=== PATIENT | male | born 1965 | race Caucasian/White ===

== ENCOUNTER → 2023-03-12 13:28 | Outpatient (REF) | payer BC, SELFPAY ==
[2023-03-12 14:40] LABS: % Basophils 0.1 % (0-2); % Immature Granulocytes 0.5 % (0-0.5); % Lymphocytes 11.3 % (20.5-51.1); % Monocytes 5.4 % (1.7-9.3); % Neutrophils 82.7 % (42.2-75.2); Absolute Immature Granulocytes 0.1 10^3/uL (0-0.05); Absolute Lymphocytes 1.4 10^3/uL (1.2-3.4); Absolute Monocytes 0.7 10^3/uL (0.1-0.6); Hematocrit 37.5 % (39.0-52.0); Mean Corp Hgb Conc. 34.7 g/dL (33.0-37.0); Mean Corpuscular Hgb 30.3 pg (27.0-31.0); Mean Corpuscular Volume 87.4 fL (80.0-94.0); Mean Platelet Volume 10.6 fL (7.4-10.4); Nucleated Red Blood Cells % 0 % (-); Platelet Count 363 10^3/uL (130-400); Red Blood Cell Count 4.29 10^6/uL (4.70-6.10); Red Cell Dist. Width 12.1 % (11.5-14.5); White Blood Cell Count 12.1 10^3/uL (4.8-10.8)
[2023-03-12 15:26] LABS: ALT (SGPT) 46 U/L (0-50); AST (SGOT) 33 U/L (17-59); Albumin 4.9 g/dl (3.5-5.0); Alkaline Phosphatase 116 U/L (38-126); Blood Urea Nitrogen 19 mg/dl (9-20); Calcium 9.9 mg/dl (8.4-10.2); Carbon Dioxide 23 mmol/L (22-30); Chloride 103 mmol/L (98-107); Glucose 138 mg/dl (70-99); LDH 148 U/L (120-246); Potassium 4.2 mmol/L (3.5-5.1); Sodium 137 mmol/L (135-145); Total Bilirubin 0.5 mg/dl (0.2-1.3); Total Protein 7.7 g/dl (6.3-8.2); eGFR > 60.00
== END ==
LOC: RAD 13:28
PROVIDERS: ATTENDING PHYSICIAN Dermatology; FAMILY PHYSICIAN Family Medicine; REFERRING PHYSICIAN Physician Assistant
DX: C43.52 Malignant melanoma of skin of breast (principal)
CPT/HCPCS: 36415; 71046; 80053; 83615; 85025

== ENCOUNTER → 2023-04-06 11:48 | Outpatient (REF) | payer BC, SELFPAY ==
[2023-04-06 12:35] LABS: ALT (SGPT) 21 U/L (0-50); AST (SGOT) 30 U/L (17-59); HDL Cholesterol 51 mg/dl; LDL Cholesterol, Calculated 88 mg/dl; Total Cholesterol 156 mg/dl (50-199); Triglyceride 87 mg/dl (10-149); Very Low Density Lipoprotein 17 mg/dl (0-30)
== END ==
LOC: REG 11:48
PROVIDERS: ATTENDING PHYSICIAN Internal Medicine; FAMILY PHYSICIAN Family Medicine
DX: E78.00 Pure hypercholesterolemia, unspecified (principal)
CPT/HCPCS: 36415; 80061; 84450; 84460

== ENCOUNTER 2023-04-23 02:04 | Emergency (ER) | payer BC, SELFPAY ==
[2023-04-23] VITALS (8 sets, daily range): BP systolic 109–140; BP diastolic 73–98; BMI 29.7
[2023-04-23 03:21] LABS: % Basophils 0.5 % (0-2); % Eosinophils 1.2 % (0-6); % Immature Granulocytes 0.5 % (0-0.5); % Lymphocytes 23.1 % (20.5-51.1); % Monocytes 7.5 % (1.7-9.3); % Neutrophils 67.2 % (42.2-75.2); Absolute Basophils 0.1 10^3/uL (0-0.2); Absolute Eosinophils 0.2 10^3/uL (0-0.7); Absolute Immature Granulocytes 0.1 10^3/uL (0-0.05); Absolute Neutrophils 8.7 10^3/uL (1.4-6.5); Hematocrit 36.2 % (39.0-52.0); Mean Corp Hgb Conc. 35.9 g/dL (33.0-37.0); Mean Corpuscular Volume 86.2 fL (80.0-94.0); Mean Platelet Volume 10.7 fL (7.4-10.4); Nucleated Red Blood Cells % 0 % (-); Platelet Count 319 10^3/uL (130-400); Red Cell Dist. Width 11.9 % (11.5-14.5)
[2023-04-23 03:22] LABS: Urine Albumin Negative (Neg - Trace); Urine Bilirubin Negative (Negative); Urine Character Clear (Clear); Urine Color Yellow; Urine Glucose Negative (Negative); Urine Ketone Negative (Negative); Urine Leukocyte Negative (Negative); Urine Nitrite Negative (Negative); Urine Occult Blood Negative (Negative); Urine Urobilinogen Negative (Neg - 1+)
[2023-04-23 03:36] LABS: ALT (SGPT) 31 U/L (0-50); AST (SGOT) 37 U/L (17-59); Albumin 4.4 g/dl (3.5-5.0); Alkaline Phosphatase 114 U/L (38-126); Blood Urea Nitrogen 24 mg/dl (9-20); Calcium 9.8 mg/dl (8.4-10.2); Carbon Dioxide 27 mmol/L (22-30); Chloride 98 mmol/L (98-107); Glucose 237 mg/dl (70-99); Potassium 4.4 mmol/L (3.5-5.1); Sodium 138 mmol/L (135-145); Total Bilirubin 0.4 mg/dl (0.2-1.3); Total Protein 7.1 g/dl (6.3-8.2); eGFR > 60.00
[2023-04-23] MEDS: VALIUM INJECTION 2 MG IV (05:49)
[2023-04-23] MEDS: TORADOL 30 MG IV (05:49)
[2023-04-23] MEDS: DECADRON 10 MG IV (05:49)
--- NOTE | 2023-04-23 06:41 | ED.GENMED ---
History of Present Illness
General
Chief Complaint: Breathing Problem
Source: patient
Exam Limitations: none
Time Seen by Provider: 04/23/23 03:25
Nursing documentation reviewed up to this point in time: agreed with
Travel History
Have you had any contact with someone who has COVID-19?: No
Do you have any symptoms of coronavirus? Fever > 100 degrees, chills, cough, shortness of breath, sore throat, loss of taste or smell, muscle aches, or headache?: No
History of Present Illness
History of Present Illness:
Patient with history of multiple spinal fusion, presents to ED secondary to sudden onset of left lower back pain radiating to his groin and thigh. Denies fever or chills. Denies nausea or vomiting. Denies urinary or bowel incontinence. Denies
low sensation or weakness. Denies difficulty with ambulation. Denies trauma. Denies recent illness. Patient has an appointment with his surgeon at [place] in 2 weeks.
Past History
Past History
ED Past Medical History: GERD and IDDM
ED Past Surgical History: Orthopedic
Social History
Tobacco: Non-smoker
Alcohol: Occasional
Drug: None
Personal:
Living: with family
Employment: Employed
Family History
Family History: Other
Review of Systems
Review of Systems
Allergies reviewed?: Yes
All Other Systems: ROS reviewed and negative except as documented in HPI and ROS
Constitutional: Reports no symptoms; Denies fever
Respiratory: Reports no symptoms
ABD/GI: Reports no symptoms
: Reports no symptoms; Denies incontinence or difficulty voiding
Musculoskeletal: Reports back pain
Skin: Reports no symptoms
Neurological: Reports no symptoms; Denies weakness or numbness
Phy Exam
Physical Exam
Physical Exam:
Physical Exam
General: mild painful distress, not acutely ill. afebrile
Head: nc/at. eomi
Neck: supple. no meningeal signs.
Abdomen: normal bowel sounds. not tender.
Back: no mid line tenderness. mild left lower back/buttock tenderness to palpation. pain worse with left leg elevation/flexion/rotation.
Neuro: alert and oriented. no focal neurological deficits
Skin: no rash
Psychiatric: well kept. interactive and cooperative
Extremities: no edema. no calf tenderness.
Scores
Heart Failure Risk
Heart Failure Risk Score: Not Applicable
Course
Orders/Labs/Results
Orders:
Orders
04/23/23 02:41
CMP [Comprehensive Metabolic Panel] Urgent
Complete Blood Count/With Diff Urgent
Urinalysis Urgent
Date Specimen was Collected: 04/23/23
Time Specimen was Collected: 02:21
04/23/23 05:34
Dexamethasone Sod Phosphate [Decadron] 10 mg IV NOW STA
Ketorolac [Toradol] 30 mg IV NOW STA
diazePAM [Valium Injection] 2 mg IV NOW STA
04/23/23 06:41
HYDROmorphone [Dilaudid] 1 mg .ROUTE .STK-MED ONE
HYDROmorphone [Dilaudid] 1 mg IV NOW STA
04/23/23 07:50
HYDROmorphone [Dilaudid] 0.5 mg IV NOW STA
Abnormal Lab Results
04/23/23
02:41
WBC 13.0 H 10^3/uL
(4.8-10.8)
RBC 4.20 L 10^6/uL
(4.70-6.10)
Hct 36.2 L %
(39.0-52.0)
MPV 10.7 H fL
(7.4-10.4)
Abs Immat Gran (auto) 0.1 H 10^3/uL
(0-0.05)
Absolute Neuts (auto) 8.7 H 10^3/uL
(1.4-6.5)
Absolute Monos (auto) 1.0 H 10^3/uL
(0.1-0.6)
BUN 24 H mg/dl
(9-20)
Glucose 237 H mg/dl
(70-99)
04/23/23 02:41
04/23/23 02:41
Vital Signs
Initial and Last Documented VS:
Initial Vital Signs
Temp Pulse Resp BP Pulse Ox
97.5 F 94 24 140/98 98
04/23/23 02:11 04/23/23 02:11 04/23/23 02:11 04/23/23 02:11 04/23/23 02:11
Last Documented Vital Signs
Temp Pulse Resp BP Pulse Ox
97.5 F 84 9 123/91 94
04/23/23 02:11 04/23/23 08:00 04/23/23 07:45 04/23/23 08:00 04/23/23 08:30
MDM/Problems Addressed
MDM/Problems Addressed:
History and exam concerning for potential exacerbation of lower back pain/sciatica. Will treat symptomatically and potentially refer patient to his surgeon for reevaluation, including potential MRI as an outpatient. Exam findings inconsistent with
cauda equina syndrome.
*Critical Care Note
Total Time (30-74mins, 75-104mins- exclusive of procedures): Not Applicable
ED Attending Note
-
Portions of this chart may have been created with voice recognition software.� Occasional wrong word or��sound alike� substitutions may have occurred due to the inherent limitations of voice recognition software.
Discharge Plan
Departure
Patient Disposition: Home (Routine Discharge)
Date of Disposition: 04/23/23
Time of Disposition: 07:50
Patient with high blood pressure during this ER visit?: Yes
Discharge Problem:
Back pain
Instructions: Back Pain
Prescriptions:
New
methylprednisolone [Medrol (Lloyd)] 4 mg tablets,dose pack
4 mg PO DAILY Qty: 21 0RF
Rx Instructions:
As directed
diazepam [Valium] 2 mg tablet
2 mg PO TID PRN (Reason: muscle spasm) Qty: 10 0RF
No Action
metformin 500 MG tablet
1,000 mg PO BID
rabeprazole [AcipHex] 20 MG tablet,delayed release (DR/EC)
20 mg PO DAILY
cetirizine [Zyrtec] 10 MG tablet
10 mg PO DAILY
colesevelam [WelChol] 625 MG tablet
625 mg PO BID
azelastine 1 SPRAY aerosol,spray
2 spray intranasal DAILY
Patient Comments:
each nostril
cholecalciferol (vitamin D3) 1,000 UNITS tablet
3,000 units PO DAILY
diazepam [Valium] 5 mg tablet
5 mg PO BID PRN (Reason: muscle spasm) Qty: 8 0RF
dicyclomine 20 mg tablet
20 mg PO TID PRN (Reason: abdominal pain) Qty: 10 0RF
Referrals:
Jorge Alberto Patel DO [Family Provider] -
Activity Restrictions/Additional Instructions:
As discussed, please follow-up with your surgeon for further evaluation and treatment. Your prescriptions have been sent electronically to [facility] pharmacy in [place].
Interventions
Interventions:
*Risk Screen - Suicide Last Done: 04/23/23 02:11
*General Assessment Last Done: 04/23/23 03:49
*Neglect/Abuse Screening Last Done: 04/23/23 02:11
ED- Fall Risk Assessment Last Done: 04/23/23 08:30
*ED COVID-19 Vaccine History Last Done: 04/23/23 03:49
*Nursing Disposition Last Done: 04/23/23 08:30
NN-Dndfsp-Rvfdirzumf Assessment Last Done: 04/23/23 03:49
ED- Cardiac Assessment Last Done: 04/23/23 03:49
ED-Male Genitourinary Assessment Last Done: 04/23/23 03:49
ED- Pulmonary Assessment Last Done: 04/23/23 03:49
Discharge Date and Time
Discharge Date/Time: 04/23/23 08:30
[2023-04-23] MEDS: DILAUDID 1 MG IV (06:43)
[2023-04-23] MEDS: DILAUDID 0.5 MG IV (08:00)
== END 2023-04-23 08:30 | disposition home or self-care (01) ==
LOC: EMR 02:04
PROVIDERS: EMERGENCY PHYSICIAN Emergency Medicine; FAMILY PHYSICIAN Family Medicine
DX: M54.50 Low back pain, unspecified (principal); R03.0 Elevated blood-pressure reading, without diagnosis of hypertension
CPT/HCPCS: 99284; 96374; 96375 ×3; 96376; 36415; 80053; 81003; 82607; 82728; 82746; 83540; 83550; 85025; 85027

== ENCOUNTER → 2023-05-04 10:36 | Outpatient (REF) | payer BC, SELFPAY ==
[2023-05-04 11:06] LABS: % Basophils 0.6 % (0-2); % Eosinophils 2.1 % (0-6); % Immature Granulocytes 0.9 % (0-0.5); % Lymphocytes 34.5 % (20.5-51.1); % Monocytes 8.5 % (1.7-9.3); % Neutrophils 53.4 % (42.2-75.2); Absolute Eosinophils 0.1 10^3/uL (0-0.7); Absolute Immature Granulocytes 0.1 10^3/uL (0-0.05); Absolute Lymphocytes 2.3 10^3/uL (1.2-3.4); Absolute Monocytes 0.6 10^3/uL (0.1-0.6); Absolute Neutrophils 3.5 10^3/uL (1.4-6.5); Hematocrit 37.9 % (39.0-52.0); Hemoglobin 12.4 g/dL (13.0-18.0); Mean Corp Hgb Conc. 32.7 g/dL (33.0-37.0); Mean Corpuscular Volume 91.5 fL (80.0-94.0); Mean Platelet Volume 10.7 fL (7.4-10.4); Nucleated Red Blood Cells % 0 % (-); Platelet Count 284 10^3/uL (130-400); Red Blood Cell Count 4.14 10^6/uL (4.70-6.10); Red Cell Dist. Width 11.9 % (11.5-14.5); White Blood Cell Count 6.6 10^3/uL (4.8-10.8)
[2023-05-04 11:55] LABS: ALT (SGPT) 22 U/L (0-50); AST (SGOT) 23 U/L (17-59); Albumin 4.1 g/dl (3.5-5.0); Alkaline Phosphatase 112 U/L (38-126); Blood Urea Nitrogen 20 mg/dl (9-20); Calcium 9.4 mg/dl (8.4-10.2); Carbon Dioxide 30 mmol/L (22-30); Chloride 102 mmol/L (98-107); Glucose 200 mg/dl (70-99); HDL Cholesterol 45 mg/dl; LDL Cholesterol, Calculated 53 mg/dl; Potassium 4.5 mmol/L (3.5-5.1); Sodium 139 mmol/L (135-145); Total Bilirubin 0.3 mg/dl (0.2-1.3); Total Cholesterol 137 mg/dl (50-199); Total Protein 6.6 g/dl (6.3-8.2); Triglyceride 196 mg/dl (10-149); Very Low Density Lipoprotein 39 mg/dl (0-30); eGFR > 60.00
[2023-05-04 12:32] LABS: Glycohemoglobin (HgbA1c) 9.4 % (4.0-5.6)
== END ==
LOC: REG 10:36
PROVIDERS: ATTENDING PHYSICIAN Physician Assistant; FAMILY PHYSICIAN Family Medicine
DX: E11.65 Type 2 diabetes mellitus with hyperglycemia (principal)
CPT/HCPCS: 36415; 80053; 80061; 83036; 85025

== ENCOUNTER 2023-05-22 23:49 | Inpatient (IN) | payer BC, SELFPAY ==
[2023-05-22 15:22] VITALS: BP 112/91; BMI 28.2
[2023-05-22 15:40] LABS: % Basophils 0.7 % (0-2); % Eosinophils 2.6 % (0-6); % Immature Granulocytes 0.3 % (0-0.5); % Lymphocytes 36.3 % (20.5-51.1); % Neutrophils 52.1 % (42.2-75.2); Absolute Eosinophils 0.2 10^3/uL (0-0.7); Absolute Lymphocytes 2.2 10^3/uL (1.2-3.4); Absolute Monocytes 0.5 10^3/uL (0.1-0.6); Absolute Neutrophils 3.2 10^3/uL (1.4-6.5); Hematocrit 38.6 % (39.0-52.0); Hemoglobin 12.8 g/dL (13.0-18.0); Mean Corp Hgb Conc. 33.2 g/dL (33.0-37.0); Mean Corpuscular Volume 90.4 fL (80.0-94.0); Mean Platelet Volume 10.2 fL (7.4-10.4); Nucleated Red Blood Cells % 0 % (-); Platelet Count 336 10^3/uL (130-400); Red Blood Cell Count 4.27 10^6/uL (4.70-6.10); Red Cell Dist. Width 12.4 % (11.5-14.5); White Blood Cell Count 6.2 10^3/uL (4.8-10.8)
[2023-05-22 15:49] LABS: Urine Albumin Negative (Neg - Trace); Urine Bilirubin Negative (Negative); Urine Character Clear (Clear); Urine Color Yellow; Urine Glucose Negative (Negative); Urine Ketone Trace (Negative); Urine Leukocyte Negative (Negative); Urine Nitrite Negative (Negative); Urine Occult Blood Negative (Negative); Urine Specific Gravity 1.025 (<1.030); Urine Urobilinogen Negative (Neg - 1+)
[2023-05-22 15:56] LABS: ALT (SGPT) 189 U/L (0-50); AST (SGOT) 158 U/L (17-59); Albumin 4.7 g/dl (3.5-5.0); Alkaline Phosphatase 365 U/L (38-126); Blood Urea Nitrogen 20 mg/dl (9-20); Calcium 9.6 mg/dl (8.4-10.2); Carbon Dioxide 24 mmol/L (22-30); Chloride 105 mmol/L (98-107); Estimated Creatinine Clearance 95 ml/min; Glucose 136 mg/dl (70-99); Lipase 66 U/L (23-300); Sodium 138 mmol/L (135-145); Total Bilirubin 0.5 mg/dl (0.2-1.3); Total Protein 7.6 g/dl (6.3-8.2); eGFR > 60.00
--- NOTE | 2023-05-22 18:09 | ED.GENMED ---
History of Present Illness
General
Chief Complaint: Abdominal Pain
Time Seen by Provider: 05/22/23 18:08
Travel History
Have you had any contact with someone who has COVID-19?: No
Do you have any symptoms of coronavirus? Fever > 100 degrees, chills, cough, shortness of breath, sore throat, loss of taste or smell, muscle aches, or headache?: No
History of Present Illness
History of Present Illness:
HPI: Patient presents with abdominal pain onset 2 days ago. This is associated with nausea and decreased appetite but he has not vomited. Of note he also could not get his 7.5 mg dose of Mounjaro filled last week and he was switched to 10 mg which
he took for the first time this past Saturday and the symptoms started 2 days ago.
EXAM:
GENERAL: Well appearing in no distress
HEENT: Moist oral mucosa
CARDIOVASCULAR: No murmurs, normal heart rate, regular rhythm, No chest wall tenderness
PULMONARY: No respiratory distress, breath sounds are clear and equal
ABDOMEN: Soft with no peritoneal signs, mild right-sided upper and lower tenderness and very minimal left-sided tenderness
NEUROLOGIC: Excellent strength all extremities, no coordination deficits
PSYCHIATRIC: Appropriate mental status, normal insight and judgement
EXTREMITIES: Nontender, no edema, moves all extremities equally
SKIN: No rash, no lesions
TIME OF INITIAL ENCOUNTER: 6:40 PM
NUMBER AND COMPLEXITY OF PROBLEMS ADDRESSED AT THE ENCOUNTER
� Chronic conditions affecting care: Diabetes, GERD, hyperlipidemia
� Acute Exacerbation and/or Progression of Chronic Illness: This is an acute problem
� Differential Diagnosis includes: Ureteral stone/colic, appendicitis, mesenteric adenitis, epiploic appendagitis, diverticulitis, medication reaction
AMOUNT AND/OR COMPLEXITY OF DATA TO BE REVIEWED AND ANALYZED
� I performed an independent evaluation of and my interpretation is:
EKG:
CT: CAT scan shows no acute abnormality but there is a moderate amount of stool noted
X-rays:
Laboratory Studies: White count normal, chemistries unremarkable with the LFTs are abnormal including AST ALT and alk phos, no evidence of UTI on urinalysis but trace ketones are noted
Other: Ultrasound imaging shows 7.3 mm CBD along with borderline positive Peck sign
� Review of other/old records: I reviewed old records and the LFTs in the past were normal
� Clinical information was obtained by an independent historian: I spoke to at bedside
� Prescriptions/Medications Considered but not given:
� Further testing considered but not performed:
RISK OF COMPLICATIONS AND/OR MORBIDITY OR MORTALITY OF PATIENT MANAGEMENT
� Social determinants of health affecting care: Lives at home
� Discussion with other providers: Discussed with Dr. Marshall MRCP; discussed Dr. Rivas who states MRCP cannot be done tonight. Hospitalist, Dr. Gleason, for admission at 10:19 PM
� Escalation of care including admission/observation vs risk of discharge considered: Patient has right lower quadrant tenderness with loss of appetite�will obtain CT imaging but will also obtain right upper quadrant ultrasound
given the abnormal LFTs. CT relatively unremarkable but ultrasound shows biliary ductal dilatation. I am concerned about the possibility of a CBD stone however the patient's total bili is normal. The patient does have ongoing pain.
Past History
Past History
ED Past Medical History: GERD and IDDM
ED Past Surgical History: Orthopedic
Social History
Tobacco: Non-smoker
Alcohol: Occasional
Drug: None
Personal:
Living: with family
Employment: Employed
Family History
Family History: Other
Phy Exam
Physical Exam
Physical Exam:
See HPI
Course
Orders/Labs/Results
Orders:
Orders
05/22/23 15:22
Electrocardiogram (*1) Urgent
Reason for Study: Abdominal Pain
EKG- Treatment ONCE
05/22/23 15:32
Complete Blood Count/With Diff Urgent
Comprehensive Metabolic Panel Urgent
Lipase Urgent
Urinalysis Reflex To Culture Urgent
Date Specimen was Collected: 05/22/23
Time Specimen was Collected: 15:22
05/22/23 18:43
0.9% Sodium Chloride 1000 ml [Nss] 1,000 ml IV BOLUS
Ondansetron Injectable [Zofran] 4 mg IV NOW STA
05/22/23 18:47
HYDROmorphone [Dilaudid] 2 mg IV NOW STA
05/22/23 18:48
CT Abd/pelvis W Iv Cont Urgent
Comment:
Reason For Exam: R pain; normal WBC, high LFTs
05/22/23 20:56
US Abdomen Complete/Upper Urgent
Comment:
Reason For Exam: abnormal LFTs right sided pain
05/22/23 22:00
Methylnaltrexone [place] [Relistor] 12 mg SC ONCE ONE
Abnormal Lab Results
05/22/23
15:32
RBC 4.27 L 10^6/uL
(4.70-6.10)
Hgb 12.8 L g/dL
(13.0-18.0)
Hct 38.6 L %
(39.0-52.0)
Glucose 136 H mg/dl
(70-99)
AST 158 H U/L
(17-59)
ALT 189 H U/L
(0-50)
Alkaline Phosphatase 365 H U/L
(38-126)
Urine Ketones Trace A
(Negative)
05/22/23 15:32
05/22/23 15:32
Vital Signs
Initial and Last Documented VS:
Initial Vital Signs
Temp Pulse Resp BP Pulse Ox
98.9 F 84 16 112/91 99
05/22/23 15:22 05/22/23 15:22 05/22/23 15:22 05/22/23 15:22 05/22/23 15:22
Last Documented Vital Signs
Temp Pulse Resp BP Pulse Ox
98.9 F 72 18 110/62 98
05/22/23 15:22 05/22/23 20:56 05/22/23 19:47 05/22/23 20:56 05/22/23 19:47
*Critical Care Note
Total Time (30-74mins, 75-104mins- exclusive of procedures): Not Applicable
ED Attending Note
-
Portions of this chart may have been created with voice recognition software.� Occasional wrong word or��sound alike� substitutions may have occurred due to the inherent limitations of voice recognition software.
Discharge Plan
Departure
Patient Disposition: Admit
Date of Disposition: 05/22/23
Time of Disposition: 22:18
Presentation/result/management discussed w/ accepting MD/DO: Hospitalist
Discharge Problem:
Common bile duct dilatation
Prescriptions:
No Action
metformin 500 MG tablet
1,000 mg PO BID
rabeprazole [AcipHex] 20 MG tablet,delayed release (DR/EC)
20 mg PO DAILY
cetirizine [Zyrtec] 10 MG tablet
10 mg PO DAILY
colesevelam [WelChol] 625 MG tablet
625 mg PO BID
azelastine 1 SPRAY aerosol,spray
2 spray intranasal DAILY
Patient Comments:
each nostril
cholecalciferol (vitamin D3) 1,000 UNITS tablet
3,000 units PO DAILY
diazepam [Valium] 5 mg tablet
5 mg PO BID PRN (Reason: muscle spasm) Qty: 8 0RF
dicyclomine 20 mg tablet
20 mg PO TID PRN (Reason: abdominal pain) Qty: 10 0RF
methylprednisolone [Medrol (Lloyd)] 4 mg tablets,dose pack
4 mg PO DAILY Qty: 21 0RF
Rx Instructions:
As directed
diazepam [Valium] 2 mg tablet
2 mg PO TID PRN (Reason: muscle spasm) Qty: 10 0RF
Referrals:
Jorge Alberto Patel, DO [Family Provider] -
Interventions
Interventions:
*Risk Screen - Suicide Last Done: 05/22/23 15:22
*General Assessment Last Done: 05/22/23 19:46
*Neglect/Abuse Screening Last Done: 05/22/23 15:22
*ED COVID-19 Vaccine History Last Done: 05/22/23 15:22
ZU-Xbvwbx-Ycniyqryda Assessment Last Done: 05/22/23 19:46
Discharge Date and Time
Print Language: LUXEMBOURGISH
[2023-05-22] MEDS: DILAUDID 2 MG IV (19:39)
[2023-05-22] MEDS: NSS 1000 IV (19:40)
[2023-05-22] MEDS: ZOFRAN 4 MG IV ×2 (19:40→23:41)
[2023-05-22 19:46] VITALS: BP 127/82
[2023-05-22 19:47] VITALS: BP 127/82
[2023-05-22 20:56] VITALS: BP 110/62
[2023-05-22] MEDS: RELISTOR 12 MG SC (22:16)
--- NOTE | 2023-05-22 22:31 | HPS.HSE ---
Family Physician
-
Family Physician: Jorge Alberto Patel
Chief Complaint
-
Right upper quadrant abdominal pain with nausea
History of Present Illness
58-year-old male complaining of right upper quadrant abdominal pain with nausea that started Saturday 2 days ago. He denies vomiting, fever, chills, chest pain, palpitations, shortness of breath, cough, diarrhea. He is on current Mounjaro advanced
to 10 mg 6 days ago. He is also on chronic opiates for back pain and has upcoming back surgery June 10 for S1 screw repair that is loose. He has history of DM 2 exacerbated by steroids with recent A1c 9.4. Other past medical history includes
chronic back pain on oral opiates, HLD, fatty liver, hepatomegaly, GERD, arthritis.
Medical History
Past Medical History
Past Medical History: Reports Other
Additional Past Medical History:
DM2 on Mounjaro x 1 year recent increase
HLD
GERD
arthritis unknown type
Past Surgical History: Reports Other
Additional Past Surgical History:
L3-L4 surgery 2014
C5, C6, C7 fusion 2013
C3-5 cervical fusion
Right ankle fracture repair 2009,
right shoulder surgery 1999
Social History
Tobacco: Non-smoker
Alcohol: Occasional
Drug: None
Personal:
Living: With Family ()
Employment: Employed
Family History
Family History: Other (Mother benign brain tumor that affected pituitary gland, father CVA, maternal uncle gallstones)
Allergies / Home Medications
Allergies reflects when Allergies were last updated in [facility].
Home Medications with original date entered in [facility]
Allergy/Medication List:
Allergies
Allergy/AdvReac Type Severity Reaction Status Date / Time
Penicillins Allergy Rash Verified 05/22/23 15:22
Sulfa (Sulfonamide Allergy Rash Verified 05/22/23 15:22
Antibiotics)
trazodone Allergy Unknown Verified 05/22/23 15:22
Home Medications
azelastine 137 mcg (0.1 %) nasal spray aerosol 2 spray intranasal DAILY 04/05/20
cetirizine 10 mg tablet (Zyrtec) 10 mg PO DAILY 04/05/20
colesevelam 625 mg tablet (WelChol) 625 mg PO BID 04/05/20
rabeprazole 20 mg tablet,delayed release (AcipHex) 20 mg PO DAILY 04/05/20
dicyclomine 20 mg tablet 20 mg PO TID PRN abdominal pain #10 tabs 04/03/22
ascorbic acid (vitamin C) 500 mg tablet (Vitamin C) 500 mg PO DAILY 05/22/23
aspirin 81 mg tablet,delayed release 81 mg PO DAILY 05/22/23
bempedoic acid 180 mg-ezetimibe 10 mg tablet (Nexlizet) 1 tab PO DAILY 05/22/23
carisoprodol 350 mg tablet 350 - 700 mg PO HS 05/22/23
cholecalciferol (vitamin D3) 25 mcg (1,000 unit) tablet (Vitamin D3) 50 mcg PO HS 05/22/23
cyanocobalamin (vitamin B-12) 1,000 mcg tablet (Vitamin B-12) 1,000 mcg PO DAILY 05/22/23
ferrous sulfate 325 mg (65 mg iron) tablet 325 mg PO DAILY 05/22/23
fluticasone furoate 27.5 mcg/actuation nasal spray,suspension (Flonase Sensimist) 1 spray intranasal DAILY 05/22/23
hydromorphone 2 mg tablet (Dilaudid) 4 mg PO Q6H PRN moderate-severe pain 05/22/23
insulin detemir U-100 100 unit/mL (3 mL) subcutaneous pen (Levemir FlexPen) 10 unit SC HS 05/22/23
losartan 50 mg tablet 50 mg PO DAILY 05/22/23
metformin 1,000 mg tablet 1,000 mg PO BID 05/22/23
tapentadol 100 mg tablet,extended release,12 hr (Nucynta ER) 100 mg PO Q12H 05/22/23
tapentadol 75 mg tablet (Nucynta) 75 mg PO BID PRN breakthrough pain 05/22/23
tirzepatide 10 mg/0.5 mL subcutaneous pen injector (Mounjaro) 10 mg SC FR 05/22/23
Review of Systems
-
History Source: Patient and Family ( at bedside)
A 12 point ROS was completed and negative except as noted: Yes
Constitutional: Denies Fever, Fatigue or Chills
EENT: Denies Sore Throat or Runny Nose
Respiratory: Denies Cough or Trouble Breathing
Cardiac: Denies Chest Pain, Diaphoresis, Palpitations or Syncope
Abdomen/GI: Reports Abdominal Pain (Right upper quadrant), Nausea and Constipated; Denies Vomiting, Diarrhea, Bloody Stools or Black Stools
: Denies Dysuria, Frequency, Flank Pain, Incontinence, Difficulty Voiding or Urgency
Musculoskeletal: Denies Joint Pain or Edema
Skin: Denies Itching or Rash
Neurological: Denies Dizzy, Headache or Weakness
Endocrine: Reports No Symptoms
Hematologic/Lymphatic: Reports No Symptoms
Psych: Reports Calm
Physical Exam
Vital Signs
Vital Signs
Temp Pulse Resp BP Pulse Ox
98.9 F 72 18 110/62 98
05/22/23 15:22 05/22/23 20:56 05/22/23 19:47 05/22/23 20:56 05/22/23 19:47
Physical Exam
General: Conversant and Pain; No Fever, Chills or Sweats
HEENT: NormoCephalic, Anicteric, PERRLA, [place] Conjunctivae and No Ptosis
Respiratory: Clear; No Wheezes, Rales or Rhonchi
Cardiac: S1/S2 and Regular Rhythm; No Murmur, Rub, Gallop or Peripheral Edema
Breast: Deferred by me
GI: Soft, Non Distended, Normal Bowel Sounds, Tender (Right upper quadrant) and No Hernias
Rectal: Deferred by Provider
Genito-urinary: Deferred by me
Musculoskeletal: No Clubbing, No Cyanosis and No Edema
Skin: Warm and Dry; No Rash
Neuro: AO x 3, No Motor Deficits, Nonfocal/grossly intact, Cranial Nerves Intact and No Sensory Deficits; No Slurred Speech, Facial Droop or Tremors
Psych: Calm
Laboratory Results
-
05/22/23 15:32
05/22/23 15:32
Laboratory Results
Total Bilirubin 0.5 mg/dl (0.2-1.3) 05/22/23 15:32
AST 158 U/L (17-59) H 05/22/23 15:32
ALT 189 U/L (0-50) H 05/22/23 15:32
Alkaline Phosphatase 365 U/L (38-126) H 05/22/23 15:32
Lipase 66 U/L (23-300) 05/22/23 15:32
Impression/Plan
-
Impression/plan:
Admit to MedSurg
#Acute transaminitis with intra/extrahepatic bile duct dilatation concern for obstructing stones vs side effect Mounjaro
#Hepatomegaly/fatty liver
-7.3 mm extra hepatic bile duct dilatation
AST 158, ALT 99, alk phos 365
-MRCP in a.m.
-Consult GI�Dr. Walp aware
-Hold Mounjaro 10 mg last dose was 05/17/2023
-N.p.o.
-IV NSS
-IV Zofran
-IV pain control Dilaudid
-Follow CMP
Ultrasound abdomen complete:
1. Liver enlargement 18 cm
2. Gallbladder filled with sludge and tiny layering stones. Mild intrahepatic ductal dilatation moderate extrahepatic bile duct dilatation at 7.3 mm
3. Mild hepatomegaly with fatty infiltration of the liver
#Acute constipation 2/2 oral opiates
Patient given dose of Relistor in ER
CT abdomen pelvis with IV contrast:
1. Moderate stool in the colon consistent with constipation
2. Interval revision of posterior spinal fusion from L4-S1
#Chronic back pain on chronic oral opiates
-IV Dilaudid as needed
-Hold oral Nucynta 75 mg twice daily as needed breakthrough pain, Nucynta ER 100 mg p.o. every 12 hours
-Hold Dilaudid 4 mg every 6 hours as needed, hold dicyclomine
#DM2
-Accu-Cheks with SSI
Hold Mounjaro 10 mg daily last dose 05/17/2023
- hold metformin 1000 mg twice daily
-Hold Levemir 10 units at bedtime
HTN�benign
110/-Hold losartan 50 mg daily
#HLD
-Lipid profile
Hold WelChol 625 mg every afternoon
#GERD
-IV PPI
-Hold oral Aciphex
Iron deficiency
Hold ferrous sulfate
#Arthritis unknown type
DVT prophylaxis
SCDs
Full code
[2023-05-22 23:25] VITALS: BP 108/78
[2023-05-22] MEDS: PROTONIX IV 40 MG IV (23:30)
[2023-05-22] MEDS: DILAUDID 1 MG IV (23:31)
--- NOTE | 2023-05-22 23:40 | W.PN.UPDATE ---
Update Note
Progress Note Update
Patient seen and examined independently. Agree with findings and plan as set forth in today's H&P by JS Velazquez.
Patient is a 58y M with PMH significant for DM-II, chronic back pain and GERD who presents to ED for evaluation of abdominal pain. Pain started 2 days ago and has been isolated to the RUQ. Nausea but no vomiting. No fevers / chills. No prior
history of similar symptoms. Patient does note that he recently increased his Mounjaro to 10mg about one week ago. No other recent med changes, etc.
Ass:
Abnormal LFTs
Abdominal Pain
Cholelithiasis
Chronic Pain / Chronic Opioid Dependence
DM-II
Benign Hypertension
GERD
Plan:
Admit for further evaluation and treatment.
NPO, IVFs, pain control, antiemetics, etc.
GI evaluation.
MRCP in AM for further evaluation.
? med effect (Mounjaro) versus symptomatic cholelithiasis, etc.
Follow for any new / worsening symptoms.
[2023-05-23] VITALS (18 sets, daily range): BP systolic 103–151; BP diastolic 62–86; O2SAT 99; BMI 28.2
[2023-05-23] MEDS: NSS 1000 IV ×3 (00:43→15:41)
[2023-05-23] MEDS: DILAUDID IV (04:47)
[2023-05-23 06:09] LABS: % Basophils 0.5 % (0-2); % Eosinophils 3.1 % (0-6); % Immature Granulocytes 0.3 % (0-0.5); % Lymphocytes 39.7 % (20.5-51.1); % Monocytes 9.7 % (1.7-9.3); % Neutrophils 46.7 % (42.2-75.2); Absolute Eosinophils 0.2 10^3/uL (0-0.7); Absolute Lymphocytes 2.3 10^3/uL (1.2-3.4); Absolute Monocytes 0.6 10^3/uL (0.1-0.6); Absolute Neutrophils 2.7 10^3/uL (1.4-6.5); Hematocrit 33.1 % (39.0-52.0); Hemoglobin 10.9 g/dL (13.0-18.0); Mean Corp Hgb Conc. 32.9 g/dL (33.0-37.0); Mean Corpuscular Hgb 29.5 pg (27.0-31.0); Mean Corpuscular Volume 89.7 fL (80.0-94.0); Mean Platelet Volume 10.3 fL (7.4-10.4); Nucleated Red Blood Cells % 0 % (-); Platelet Count 260 10^3/uL (130-400); Red Blood Cell Count 3.69 10^6/uL (4.70-6.10); Red Cell Dist. Width 12.3 % (11.5-14.5); White Blood Cell Count 5.9 10^3/uL (4.8-10.8)
[2023-05-23] MEDS: DILAUDID 1 MG IV ×2 (06:26→10:42)
[2023-05-23 06:48] LABS: ALT (SGPT) 132 U/L (0-50); AST (SGOT) 75 U/L (17-59); Albumin 3.7 g/dl (3.5-5.0); Alkaline Phosphatase 279 U/L (38-126); Blood Urea Nitrogen 16 mg/dl (9-20); Calcium 8.9 mg/dl (8.4-10.2); Carbon Dioxide 27 mmol/L (22-30); Chloride 104 mmol/L (98-107); Estimated Creatinine Clearance 95 ml/min; Glucose 87 mg/dl (70-99); HDL Cholesterol 35 mg/dl; LDL Cholesterol, Calculated 103 mg/dl; Potassium 4.2 mmol/L (3.5-5.1); Sodium 139 mmol/L (135-145); Total Bilirubin 0.6 mg/dl (0.2-1.3); Total Cholesterol 170 mg/dl (50-199); Triglyceride 162 mg/dl (10-149); Very Low Density Lipoprotein 32 mg/dl (0-30); eGFR > 60.00
[2023-05-23] MEDS: PROTONIX IV 40 MG IV (08:09)
[2023-05-23] MEDS: NSS (PRESERVATIVE FREE) 10 ML IV (08:10)
[2023-05-23] MEDS: ZOFRAN 4 MG IV ×2 (08:18→20:46)
--- NOTE | 2023-05-23 08:56 | CON.GI ---
Addendum entered and electronically signed by Zayda Olivo DO 05/23/23 12:38:
will sign off, patient going to OR for lap sondra.
If IOC is positive, Dr. Ramos will let us know
Addendum entered and electronically signed by Zayda Olivo DO 05/23/23 12:36:
patient seen and examined independently of ELMO. I agree with her note with my additions:
Donnie is a 58-year-old male on chronic narcotics, jackhammer esophagus and GERD controlled with Bentyl and PPI known to Dr. Talavera who is up-to-date with colonoscopy, chronic back pain, DM on Mounjaro admitted with right sided abdominal pain, unclear
radiation that has been constant since Saturday which woke him from sleep with nausea without vomiting. No prior pain like this before. No prior LFT abnormalities. Etoh 2/month. Normal lipase. U/S in ER showed ductal dil, normal bili, more
hepatocellular and cholestatic. No fever, no leukocytosis. 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 Also constipated. Just increased his Mounjaro to 10.
Family hx of biliary colic. No known liver disease.
MRCP done shows dilated ducts without choledocholithiasis. No GBWT or pericholecystic fluid. He does have sludge and stones in the GB.
On Exam he is tender in the RUQ, but soft.
#abdominal pain with mixed cholestatic/hepatocellular injury with dilated ducts, no CBD stones
--dilated ducts are likely secondary to the narcotic use
-- patient has a good story for biliary colic - woke him from sleep, increase in GLP1, negative lipase, with nausea no vomiting, worse with eating
-- advise surgical consult for biliary colic and for IOC
Original Note:
Consultation
-
Date/Time Consultation Requested: 05/23/23 0036
Date/Time Consultation Performed: 05/23/23 0835
Requesting Provider: JS Velazquez
Performing Provider: Dr. Olivo / Ariela Rosas PA-C
Reason for Consultation: abdominal pain
Medical History
Chief Complaint / HPI
Chief Complaint: abdominal pain
History of Present Illness:
This is a 58 year old male with a past medical history of GERD, Jackhammer esophagus, esophageal stenosis (s/p dilation), fatty liver, iron deficiency anemia, chronic constipation (secondary to narcotic pain medication), chronic back pain, DM, HTN,
hyperlipidemia and melanoma who presents to the hospital with RUQ abdominal pain. Patient is known to our GI practice and saw Dr. Talavera for an office visit in March. He states the RUQ pain started 3 days ago, described as constant, worsens with
eating, and with associated nausea. No vomiting, fever, chills, heartburn, reflux or dysphagia. He states his reflux is well-controlled on Aciphex and the jackhammer esophagus has been improved on twice daily dicyclomine. Patient has been on
Mounjaro for the past year and states his dose was recently increased last week. He reports a weight loss of about 40 pounds in the past year. Constipation is a chronic issue for him, but has also worsened recently. Typically managed on senna or
lactulose at home. He denies any rectal bleeding - no melena or hematochezia. He does not smoke, rarely drinks alcohol, and avoids NSAIDs (other than daily baby aspirin). He has recently been on course of steroids. Abdominal ultrasound showing
gallbladder sludge/tiny layering stones with intra and extrahepatic biliary ductal dilatation, as well as hepatomegaly and fatty liver. Labs showed an acute transaminitis with ALT 189, AST 158 on admission and today's labs showing LFTs: ALT 132,
AST 75, alk phos 279, total bili 0.6. Other labs as follows: WBC 5.9, Hgb 10.9, MCV 89.7, platelets 260, lipase 66. MRCP has been ordered, pending.
Past Medical History
Past Medical History: Other (GERD, Jackhammer esophagus, fatty liver, iron deficiency anemia, chronic constipation (secondary to narcotic pain medication), chronic back pain, DM, HTN, hyperlipidemia and melanoma)
Past Surgical History: Other (cervical fusion, lumbar fusion, rotator cuff repair R shoulder, right ankle surgery, pt reports upcoming lumbar fusion revision at [facility] scheduled 06/11/23)
Social History
Tobacco: Non-Smoker
Alcohol: Occasional (2 drinks/month)
Drug: None
Living: With Family
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
Family History
Family History: Other (+family history of colon cancer (maternal grandfather))
Allergies / Home Medications
Allergy/AdvReac Type Severity Reaction Status Date / Time
Penicillins Allergy Rash Verified 05/22/23 15:22
Sulfa (Sulfonamide Allergy Rash Verified 05/22/23 15:22
Antibiotics)
trazodone Allergy Unknown Verified 05/22/23 15:22
�Medication �Instructions �Recorded
azelastine 137 mcg (0.1 %) nasal 2 spray intranasal DAILY 04/05/20
spray aerosol
cetirizine 10 mg tablet (Zyrtec) 10 mg PO HS 04/05/20
colesevelam 625 mg tablet (WelChol) 625 mg PO QPM 04/05/20
rabeprazole 20 mg tablet,delayed 20 mg PO BID 04/05/20
release (AcipHex)
dicyclomine 20 mg tablet 20 mg PO TID PRN abdominal pain 04/03/22
#10 tabs
ascorbic acid (vitamin C) 500 mg 500 mg PO DAILY 05/22/23
tablet (Vitamin C)
aspirin 81 mg tablet,delayed 81 mg PO DAILY 05/22/23
release
bempedoic acid 180 mg-ezetimibe 10 1 tab PO DAILY 05/22/23
mg tablet (Nexlizet)
carisoprodol 350 mg tablet 350 - 700 mg PO HS 05/22/23
cholecalciferol (vitamin D3) 25 50 mcg PO HS 05/22/23
mcg (1,000 unit) tablet (Vitamin
D3)
cyanocobalamin (vitamin B-12) 1,000 mcg PO DAILY 05/22/23
1,000 mcg tablet (Vitamin B-12)
ferrous sulfate 325 mg (65 mg 325 mg PO DAILY 05/22/23
iron) tablet
fluticasone furoate 27.5 1 spray intranasal DAILY 05/22/23
mcg/actuation nasal
spray,suspension (Flonase
Sensimist)
hydromorphone 2 mg tablet 4 mg PO Q6H PRN moderate-severe 05/22/23
(Dilaudid) pain
insulin detemir U-100 100 unit/mL 10 unit SC HS 05/22/23
(3 mL) subcutaneous pen (Levemir
FlexPen)
losartan 50 mg tablet 50 mg PO DAILY 05/22/23
metformin 1,000 mg tablet 1,000 mg PO BID 05/22/23
tapentadol 100 mg tablet,extended 100 mg PO Q12H 05/22/23
release,12 hr (Nucynta ER)
tapentadol 75 mg tablet (Nucynta) 75 mg PO BID PRN breakthrough pain 05/22/23
tirzepatide 10 mg/0.5 mL 10 mg SC FR 05/22/23
subcutaneous pen injector
(Mounjaro)
Review of Systems
-
History Source: Patient
All other systems: A 12 pt ROS was Negative except as stated above in HPI
Vital Signs
Temp Pulse Resp BP Pulse Ox
98.0 F 71 15 122/77 97
05/22/23 23:25 05/23/23 06:33 05/23/23 06:33 05/23/23 06:33 05/23/23 06:33
Physical Exam
Exam
General: Well Developed, Well Nourished and No Apparent Distress
Respiratory: Clear
Cardiac: Regular Rhythm
GI: Soft, Non Distended, Normal Bowel Sounds and Tender (+RUQ tenderness)
Skin: Warm and Dry
Neuro: Awake, Alert and Oriented
Psych: Calm
Results
WBC 5.9 10^3/uL (4.8-10.8) 05/23/23 05:52
Hgb 10.9 g/dL (13.0-18.0) L 05/23/23 05:52
Hct 33.1 % (39.0-52.0) L 05/23/23 05:52
MCV 89.7 fL (80.0-94.0) 05/23/23 05:52
Plt Count 260 10^3/uL (130-400) D 05/23/23 05:52
Absolute Neuts (auto) 2.7 10^3/uL (1.4-6.5) 05/23/23 05:52
Sodium 139 mmol/L (135-145) 05/23/23 05:52
Potassium 4.2 mmol/L (3.5-5.1) 05/23/23 05:52
Chloride 104 mmol/L (98-107) 05/23/23 05:52
Carbon Dioxide 27 mmol/L (22-30) 05/23/23 05:52
BUN 16 mg/dl (9-20) 05/23/23 05:52
Creatinine 0.8 mg/dL (0.7-1.3) 05/23/23 05:52
Calcium 8.9 mg/dl (8.4-10.2) 05/23/23 05:52
Total Bilirubin 0.6 mg/dl (0.2-1.3) 05/23/23 05:52
AST 75 U/L (17-59) H 05/23/23 05:52
ALT 132 U/L (0-50) H 05/23/23 05:52
Alkaline Phosphatase 279 U/L (38-126) H 05/23/23 05:52
Lipase 66 U/L (23-300) 05/22/23 15:32
Diagnostic Image Results:
05/23/23 MRI with MRCP:
-Mild distention of the left hepatic duct, common hepatic duct, and common bile duct without MR evidence of choledocholithiasis.
-Biliary sludge and tiny gallbladder calculi. No MR evidence of acute cholecystitis.
05/22/23 Abdomen US:
-The gallbladder is filled with sludge and tiny layering gallstones. No definite wall thickening. No pericholecystic fluid. There is a mild positive sonographic Peck sign with mild intrahepatic ductal dilatation and moderate extrahepatic bile duct
dilatation at 7.3 mm. No filling defect identified within the common bile duct. Follow-up with MRCP may be helpful if clinically indicated.
-Mild hepatomegaly with fatty infiltration of the liver.
-Remainder of the exam unremarkable.
05/22/23: CT abdomen w/ IV contrast:
1. There is no acute process. No free air or free fluid.
2. Moderate stool in the colon consistent with constipation.
3. Interval revision of posterior spinal fusion. Patient now with fusion from L4 through S1.
Prior GI Procedures:
12/27/22 ESOPH MANOMETRY- Severe Jackhammer esophagus. Mildly elevated residual UES pressure. Abnl MRSR likely due to extremely hypercontractile esophagus
�������11/28/22 EGD- Mild lower esophageal stenosis dilated w 18mm balloon. Bx neg EoE. Gastric polyps
�������10/26/22 EGD- Normal esophagus bx neg EoE. Gastric polyps.
�������05/05/20 EGD ([facility])- Benign distal esophageal stricture dilated to 48F and 54F. Fundic gland polyps.
Colonoscopy: reportedly 6 years ago at [place], normal
Assessment / Plan
-
58 year old male with a history of GERD, Jackhammer esophagus, esophageal stenosis (s/p dilation), fatty liver, iron deficiency anemia, chronic constipation (secondary to narcotic pain medication), chronic back pain, DM, HTN, hyperlipidemia and
melanoma who presents to the hospital with a 3-day history of RUQ abdominal pain, nausea (without vomiting, fever or chills) with elevated LFTs and US findings showing gallbladder sludge/tiny layering stones with intra and extrahepatic biliary
ductal dilatation. MRCP ordered for further evaluation which confirms the gallstones/sludge and dilatation of the left hepatic duct, common hepatic duct, and common bile duct without MR evidence of choledocholithiasis. His dose of Mounjaro was also
recently increased; he went from 7.5mg to 10mg 3 days prior to the pain starting. He has lost about 40 pounds in the past year on Mounjaro. Reflux is well-controlled on Aciphex. No NSAIDs other than daily baby aspirin. Constipation is a chronic
issue for him, but has also worsened recently. Typically managed on senna or lactulose at home. He denies any rectal bleeding - no melena or hematochezia.
IMPRESSION / PLAN:
Right Upper Quadrant Abdominal Pain, with elevated LFTs and intra/extrahepatic bile duct dilatation, suspicious for cholecystitis, choledocholithiasis vs narcotic-induced ductal dilatation
- no leukocytosis and normal lipase
- US findings of gb sludge/tiny stones and intra/extrahepatic bile duct dilatation
- MRCP without evidence of choledocholithiasis
- Trend LFTs (already downtrending since admission)
- Await Surgery consult
Chronic Constipation
- continue Relistor
GERD / Jackhammer esophagus
- continue PPI, pantoprazole IV
- agree with holding dicyclomine which could worsen his constipation
Anemia, iron deficiency
- baseline Hgb in the 10-12 range; currently 10.9
- saw Dr. Talavera in the office in March for this issue
- outpatient follow-up after discharge for continued workup
Other medical problems managed as per hospitalist.
-
-
Thank you for consultation and allowing me to participate in the patient's care. Please call the information engineer GI physician during the after hours with any questions or concerns.
--- NOTE | 2023-05-23 10:16 | PTOTSP ---
Pt is modified independent for ADLs and functional transfers/mobility with no device. Pt with hx of multiple spinal surgeries and owns all recommended equipment. Pt follows spinal precautions. No skilled OT needs at this time. Will sign off.
--- NOTE | 2023-05-23 10:45 | W.PN.HOSP.TC ---
Today's Communication/Plan
-
await MRCP
await GI/surgery evals
Assessment / Plan
Assessment / Plan
pt is a 58 year old male
RUQ abdominal pain with Acute transaminitis with intra/extrahepatic bile duct dilatation with Hepatomegaly/fatty liver--symptomatic cholelithiasis/choledocholithiasis--US positive for layering sludge/stones--apprec GI--s/p MRCP (results
pending)--await surgery eval--lipase WNL--NPO/IVF
type 2 DM2--holding Mounjaro--last dose 05/17/23---hold metformin 1000 mg twice daily--Levemir 10 units at bedtime should be halved if NPO--follow Accu-Cheks with SSI
Acute constipation 2/2 oral opiates--Patient given dose of Relistor in ER--may need bowel regimen
Chronic back pain on chronic oral opiates with dependency--IV Dilaudid as needed--Hold oral Nucynta 75 mg twice daily as needed breakthrough pain, Nucynta ER 100 mg p.o. every 12 hours=-Hold Dilaudid 4 mg every 6 hours as needed, hold dicyclomine
Essential HTN�holding meds --BP good currently
HLD--Lipid profile--Hold WelChol 625 mg every afternoon
GERD--IV PPI--Hold oral Aciphex
Iron deficiency--Hold ferrous sulfate
Arthritis unknown type
DVT prophylaxis--SCDs
Code status -- Full code
Anticipated Discharge: > 48 hours
Subjective/Interval History
-
Date of Service: May 23, 2023
pt feeling a bit better--c/o shoulder pain after the MRI
Objective Data
-
Labs:
Laboratory Results
05/23/23
05:52
WBC 5.9
Hgb 10.9 L
Hct 33.1 L
Plt Count 260 D
Sodium 139
Potassium 4.2
Chloride 104
Carbon Dioxide 27
BUN 16
Creatinine 0.8
Glucose 87
Calcium 8.9
Total Bilirubin 0.6
AST 75 H
ALT 132 H
Alkaline Phosphatase 279 H
Vital Signs:
max temp for 24 hours
05/22/23
15:22
Temp 98.9 F
Vital Signs
Temp Pulse Resp BP Pulse Ox
98.0 F 71 15 122/77 97
05/22/23 23:25 05/23/23 06:33 05/23/23 06:33 05/23/23 06:33 05/23/23 06:33
Review of Systems
-
All other systems: Reviewed and negative
Musculoskeletal: Reports Joint Pain (left shoulder)
Physical Exam
-
General: Well Developed, Well Nourished and No Apparent Distress
HEENT: Normocephalic and Atraumatic
Respiratory: Clear to Auscultation; Negative Wheezes or Rhonchi
Cardiac: Regular Rhythm and S1/S2; Negative Murmur
GI: Soft, Nondistended, Normal Bowel Sounds and Tender (RUQ)
Musculoskeletal: No Clubbing, No Cyanosis and No Edema
--- NOTE | 2023-05-23 11:19 | CM ---
CM met with patient in room. CM confirmed demographics. Patient lives independently with who is an RN. Patient has had a history of [facility] home care, but is currently not on service. Patient denies history of SNF and does not rely on ambulation
aides. Patient is active with his PCP and pain management physician. Patient uses [facility] for medication services.
CM will continue to follow for needs.
PLAN: pending clinical outcome.
--- NOTE | 2023-05-23 12:23 | CON.GS ---
Consultation
-
Performing Provider: michael
Reason for Consultation: cholecystitis
Medical History
-
Chief Complaint: Right upper quadrant abdominal pain
History of Present Illness:
Patient is a 58-year-old male who presented to the emergency department yesterday evening with a 2 to 3-day history of right upper quadrant abdominal pain. Exacerbated by meals. Nausea but no vomiting. No similar episodes like this in the past.
No fevers chills sweats. Persistent discomfort into today as well as nausea.
Past Medical History
Past Medical History: Other (GERD, fatty liver, iron deficiency anemia, chronic constipation in the setting of narcotic use, chronic lumbar back pain, diabetes mellitus, hypertension, hyperlipidemia and history of melanoma)
Past Surgical History: Other (Cervical fusion, lumbar fusion, rotator cuff repair, right ankle surgery, excision of right chest melanoma)
Social History
Tobacco: Non-Smoker
Alcohol: Occasional
Living: With Family
Employment: Employed
Family History
Family History: Reviewed & Not Pertinent
Allergies / Home Medications
Allergy/AdvReac Type Severity Reaction Status Date / Time
Penicillins Allergy Rash Verified 05/22/23 15:22
Sulfa (Sulfonamide Allergy Rash Verified 05/22/23 15:22
Antibiotics)
trazodone Allergy Unknown Verified 05/22/23 15:22
�Medication �Instructions �Recorded �Confirmed �Type
azelastine 137 mcg (0.1 %) nasal 2 spray intranasal DAILY 04/05/20 05/22/23 History
spray aerosol
cetirizine 10 mg tablet (Zyrtec) 10 mg PO HS 04/05/20 05/22/23 History
colesevelam 625 mg tablet (WelChol) 625 mg PO QPM 04/05/20 05/22/23 History
rabeprazole 20 mg tablet,delayed 20 mg PO BID 04/05/20 05/22/23 History
release (AcipHex)
dicyclomine 20 mg tablet 20 mg PO TID PRN abdominal pain 04/03/22 05/22/23 Rx
#10 tabs
ascorbic acid (vitamin C) 500 mg 500 mg PO DAILY 05/22/23 05/22/23 History
tablet (Vitamin C)
aspirin 81 mg tablet,delayed 81 mg PO DAILY 05/22/23 05/22/23 History
release
bempedoic acid 180 mg-ezetimibe 10 1 tab PO DAILY 05/22/23 05/22/23 History
mg tablet (Nexlizet)
carisoprodol 350 mg tablet 350 - 700 mg PO HS 05/22/23 05/22/23 History
cholecalciferol (vitamin D3) 25 50 mcg PO HS 05/22/23 05/22/23 History
mcg (1,000 unit) tablet (Vitamin
D3)
cyanocobalamin (vitamin B-12) 1,000 mcg PO DAILY 05/22/23 05/22/23 History
1,000 mcg tablet (Vitamin B-12)
ferrous sulfate 325 mg (65 mg 325 mg PO DAILY 05/22/23 05/22/23 History
iron) tablet
fluticasone furoate 27.5 1 spray intranasal DAILY 05/22/23 05/22/23 History
mcg/actuation nasal
spray,suspension (Flonase
Sensimist)
hydromorphone 2 mg tablet 4 mg PO Q6H PRN moderate-severe 05/22/23 05/22/23 History
(Dilaudid) pain
insulin detemir U-100 100 unit/mL 10 unit SC HS 05/22/23 05/22/23 History
(3 mL) subcutaneous pen (Levemir
FlexPen)
losartan 50 mg tablet 50 mg PO DAILY 05/22/23 05/22/23 History
metformin 1,000 mg tablet 1,000 mg PO BID 05/22/23 05/22/23 History
tapentadol 100 mg tablet,extended 100 mg PO Q12H 05/22/23 05/22/23 History
release,12 hr (Nucynta ER)
tapentadol 75 mg tablet (Nucynta) 75 mg PO BID PRN breakthrough pain 05/22/23 05/22/23 History
tirzepatide 10 mg/0.5 mL 10 mg SC FR 05/22/23 05/22/23 History
subcutaneous pen injector
(Dilcia)
Review of Systems
-
History Source: Patient
All other systems: Negative unless noted
A 10 point review of systems was completed, and was negative except as per HPI.
Physical Exam
Vital Signs
Temp Pulse Resp BP Pulse Ox
98.0 F 71 15 122/77 97
05/22/23 23:25 05/23/23 06:33 05/23/23 06:33 05/23/23 06:33 05/23/23 06:33
05/22/23 05/23/23 05/24/23
06:59 06:59 06:59
Actual Weight 81.647 kg 81.556 kg
Body Mass Index (BMI) 28.2
Lab Results
05/23/23 05:52
05/23/23 05:52
WBC 5.9 10^3/uL (4.8-10.8) 05/23/23 05:52
Hgb 10.9 g/dL (13.0-18.0) L 05/23/23 05:52
Hct 33.1 % (39.0-52.0) L 05/23/23 05:52
Plt Count 260 10^3/uL (130-400) D 05/23/23 05:52
Abs Immat Gran (auto) 0.0 10^3/uL (0-0.05) 05/23/23 05:52
Neutrophils % 46.7 % (42.2-75.2) 05/23/23 05:52
Physical Exam
General: Well Developed, Well Nourished, No Apparent Distress and Other (Uncomfortable/acutely ill-appearing)
HEENT: Normocephalic, Anicteric and Moist Mucous Membranes
Respiratory: Non Labored Respirations
Cardiac: Regular Rhythm
GI: Soft, Non Distended and Tender (Tenderness palpation right upper quadrant, no rebound rigidity or guarding)
Skin: Warm
Neuro: AO x 3
Psych: Calm
Data Reviewed
-
CT Scan: Image Personally Visualized and interpreted
Ultrasound: Image Personally Visualized and interpreted
MRI: Image Personally Visualized and interpreted
Assessment / Plan
-
Assessment: 58-year-old male with acute biliary colic/probable acute calculus cholecystitis and secondary intractable right upper quadrant abdominal pain and nausea. Secondary to elevated LFTs including AST, ALT and alkaline phosphatase.
Ultrasound, MRI imaging identifying sludge and small stones. Biliary ductal dilation. But negative for choledocholithiasis. Some gallbladder distention and possible mild pericholecystic edema.
Reviewed with patient indications for cholecystectomy. Discussed alternative treatment options as well. Patient in agreement to pursue cholecystectomy.
Laparoscopic cholecystectomy with intraoperative cholangiogram was reviewed in detail the patient including the operative technique utilizing a diagram and drawing. We discussed benefits and potential risk such as but not limited to bleeding,
infection and wound related complications, iatrogenic injury to surrounding viscera, bile leak, common bile duct injury. Any of the patient's concerns or questions were fully addressed and written informed consent was obtained.
Plan: Patient added onto the OR schedule for lap sondra
OR sending for patient now
--- NOTE | 2023-05-23 12:36 | W.PN.UPDATE ---
Update Note
Progress Note Update
for billing purposes
--- NOTE | 2023-05-23 13:03 | W.SUR.PREOP ---
Pre-Operative Surgical Note
-
I have examined this patient prior to the performance of the scheduled procedure.
The patient's condition is unchanged from the time of the current History and
Physical and the patient is able to undergo the scheduled procedure.
[2023-05-23 13:11] LABS: Glucose - Point of Care 88 mg/dl (70-99)
--- NOTE | 2023-05-23 14:54 | W.IMMPOSTOP ---
Addendum entered and electronically signed by Damon Ramos MD 05/23/23 17:29:
#[id number]
Original Note:
Surgical Immed Post Op Note
-
Primary Surgeon: Richard
Assisting Surgeon: Nery GUIDRY
Pre-op Diagnosis: Acute Calculous Cholecystitis
Post-op Diagnosis: Acute Calculous Cholecystitis
Procedure Performed: Laparoscopic Cholecystectomy with cholangiogram
Anesthesia Type: GETA + 0.25% Marcaine
Specimen / Cultures: GB
Estimated Blood Loss: 22mL
Complications: none immediate
Operative Findings: tensely distended and edematous GB. Filled with sludge. IOC normal. cystic duct mildly dilated - 0 PDS endoloop and then 2 clips.
Plan: clear liquid diet and ADAT
routine post op care
updated via phone call
[2023-05-23 15:20] LABS: Glucose - Point of Care 166 mg/dl (70-99)
--- NOTE | 2023-05-23 16:24 | PTCARENOTE ---
Pt arrived to [facility] from PACU s/p lap sondra. Pt on 2L NC satting 97%, IVF infusing, 5 lap sites all C/D/I, pt states pain 4-5/10, more on the right side. Pt oriented to call hearn and room, bed locked and in lowest position, call hearn within reach.
[2023-05-23] MEDS: DILAUDID 0.5 MG IV (16:41)
[2023-05-23] MEDS: ROXICODONE 5 MG PO (20:45)
[2023-05-23] MEDS: DILAUDID 4 MG PO (22:09)
[2023-05-23] MEDS: COLACE 100 MG PO (22:10)
[2023-05-24] MEDS: NSS 1000 IV (00:29)
[2023-05-24 03:58] VITALS: BP 132/78
[2023-05-24 05:14] LABS: % Basophils 0.1 % (0-2); % Eosinophils 0.2 % (0-6); % Immature Granulocytes 0.4 % (0-0.5); % Lymphocytes 12.9 % (20.5-51.1); % Monocytes 9.8 % (1.7-9.3); % Neutrophils 76.6 % (42.2-75.2); Absolute Lymphocytes 1.2 10^3/uL (1.2-3.4); Absolute Monocytes 0.9 10^3/uL (0.1-0.6); Absolute Neutrophils 7.3 10^3/uL (1.4-6.5); Hematocrit 34.3 % (39.0-52.0); Hemoglobin 11.5 g/dL (13.0-18.0); Mean Corp Hgb Conc. 33.5 g/dL (33.0-37.0); Mean Corpuscular Hgb 29.6 pg (27.0-31.0); Mean Corpuscular Volume 88.4 fL (80.0-94.0); Mean Platelet Volume 10.8 fL (7.4-10.4); Nucleated Red Blood Cells % 0 % (-); Platelet Count 300 10^3/uL (130-400); Red Blood Cell Count 3.88 10^6/uL (4.70-6.10); Red Cell Dist. Width 12.2 % (11.5-14.5); White Blood Cell Count 9.5 10^3/uL (4.8-10.8)
[2023-05-24 05:32] LABS: ALT (SGPT) 114 U/L (0-50); AST (SGOT) 62 U/L (17-59); Albumin 3.9 g/dl (3.5-5.0); Alkaline Phosphatase 262 U/L (38-126); Blood Urea Nitrogen 10 mg/dl (9-20); Calcium 8.8 mg/dl (8.4-10.2); Carbon Dioxide 24 mmol/L (22-30); Chloride 106 mmol/L (98-107); Estimated Creatinine Clearance 95 ml/min; Glucose 115 mg/dl (70-99); Magnesium 1.7 mg/dl (1.6-2.3); Sodium 137 mmol/L (135-145); Total Bilirubin 0.5 mg/dl (0.2-1.3); Total Protein 6.3 g/dl (6.3-8.2); eGFR > 60.00
[2023-05-24 05:38] LABS: Potassium 4.6 mmol/L (3.5-5.1)
[2023-05-24] MEDS: DILAUDID 4 MG PO ×3 (06:19→19:08)
[2023-05-24 07:43] VITALS: BP 137/83
[2023-05-24] MEDS: ZOFRAN 4 MG IV ×2 (08:19→14:38)
[2023-05-24] MEDS: PROTONIX IV 40 MG IV (08:19)
[2023-05-24] MEDS: COLACE 100 MG PO (08:19)
[2023-05-24] MEDS: NSS (PRESERVATIVE FREE) 10 ML IV (08:19)
--- NOTE | 2023-05-24 08:35 | W.PN.GS2 ---
Today's Communication / Plan
-
Okay for low-fat diet.
Stop antibiotics.
Dispo planning. Discharge instructions updated, patient to follow-up with Dr. Ramos in 2 to 3 weeks.
Assessment / Plan
-
This is a 58-year-old male who presented on 05/22/2023 for right upper quadrant abdominal pain. Found to have elevated LFTs, ultrasound and MRI imaging concerning for gallstones and acute cholecystitis. Postoperative day 1 status post laparoscopic
cholecystectomy with cholangiogram. Doing well, expected postoperative course.
Okay for low-fat diet.
Stop antibiotics.
Dispo planning. Discharge instructions updated, patient to follow-up with Dr. Ramos in 2 to 3 weeks.
Time Spent
Total Time Spent with Patient (in minutes): 15
Subjective Data
-
Date of Service: May 24, 2023
Interval Events:
No acute events overnight. Slept well. Pain Controlled. Denies Nausea/Vomiting, +bowel function. Tolerating diet.
Objective Data
-
Intake and Output
05/23/23 05/24/23 05/25/23
06:59 06:59 06:59
Intake Total 2500 / 2500
Output Total 1090 / 1090
Balance 1410 / 1410
Intake:
Oral fluids 720 / 720
IV fluids (Total) 1780 / 1780
NSS @120 ML/HR 0 / 0
Normosol 100 / 100
IV piggybacks 0 / 0
Output:
Urine, Voided 1090 / 1090
Other:
Number of approximated MODERATE 2
amounts of urine
Number of approximated LARGE 1
amounts of urine
Vital Signs
Temp Pulse Resp BP Pulse Ox
98.1 F 76 18 132/78 97
05/24/23 03:58 05/24/23 03:58 05/24/23 03:58 04/12/24 03:58 05/24/23 03:58
Lab Results
05/24/23 04:03
05/24/23 04:03
Calcium 8.8 mg/dl (8.4-10.2) 05/24/23 04:03
Magnesium 1.7 mg/dl (1.6-2.3) 05/24/23 04:03
Total Bilirubin 0.5 mg/dl (0.2-1.3) 05/24/23 04:03
AST 62 U/L (17-59) H 05/24/23 04:03
ALT 114 U/L (0-50) H 05/24/23 04:03
Alkaline Phosphatase 262 U/L (38-126) H 05/24/23 04:03
Total Protein 6.3 g/dl (6.3-8.2) 05/24/23 04:03
Albumin 3.9 g/dl (3.5-5.0) 05/24/23 04:03
Physical Exam
-
GENERAL/NEURO: Awake, Alert, no distress
CHEST: Unlabored breathing on RA
ABDOMEN: Soft, appropriately tender in the right upper quadrant, nondistended.
--- NOTE | 2023-05-24 11:20 | W.PN.HOSP.TC ---
Today's Communication/Plan
-
Bowel regimen
OOB/Ambulate if can tolerate
monitor diet tolerance
DC if tolerating diet
dc abx per GS
Assessment / Plan
Assessment / Plan
pt is a 58 year old male
Acute calculus cholecystitis-symptomatic cholelithiasis/choledocholithiasis--US positive for layering sludge/stones--apprec GI--s/p MRCP s/p status post laparoscopic cholecystectomy with cholangiogram. Operative finding of tensely distended
edematous gallbladder. Filled with sludge. Intraoperative cholangiogram normal. Cystic duct mildly dilated. Diet advanced. Monitor for tolerance. Passing flatulence. Bowel regimen.
type 2 DM2--holding Mounjaro--last dose 05/17/23---hold metformin 1000 mg twice daily--Levemir 10 units at bedtime should be halved if NPO--follow Accu-Cheks with SSI
Acute constipation 2/2 oral opiates--Patient given dose of Relistor in ER--may need bowel regimen. States takes senna, Colace and lactulose. Restarted.
Chronic back pain on chronic oral opiates with dependency--IV Dilaudid as needed. restarted on home regimen 4mg po q6hprn.
Essential HTN�holding meds --BP good currently
HLD--Lipid profile--Hold WelChol 625 mg every afternoon
GERD--IV PPI--Hold oral Aciphex
Iron deficiency--Hold ferrous sulfate
Arthritis unknown type
DVT prophylaxis--SCDs
Code status -- Full code
d/w with spouse at bedside
Anticipated Discharge: Within 24 hours
Subjective/Interval History
-
Date of Service: May 24, 2023
States of mild nausea after eating solids earlier today
passing flatulence
no bm
Objective Data
-
Labs:
Laboratory Results
05/24/23
04:03
WBC 9.5
Hgb 11.5 L
Hct 34.3 L
Plt Count 300
Sodium 137
Potassium 4.6
Chloride 106
Carbon Dioxide 24
BUN 10
Creatinine 0.8
Glucose 115 H
Calcium 8.8
Total Bilirubin 0.5
AST 62 H
ALT 114 H
Alkaline Phosphatase 262 H
Vital Signs:
Vital Signs
Temp Pulse Resp BP Pulse Ox
98.3 F 72 18 137/83 95
05/24/23 07:43 05/24/23 07:43 05/24/23 07:43 05/24/23 07:43 05/24/23 08:00
I&O
05/23/23 05/24/23 05/25/23
06:59 06:59 06:59
Intake Total 2500 / 2500
Output Total 1090 / 1090
Balance 1410 / 1410
Physical Exam
-
General: Well Developed, Well Nourished and No Apparent Distress
HEENT: Normocephalic and Atraumatic
Respiratory: Clear to Auscultation; Negative Wheezes or Rhonchi
Cardiac: Regular Rhythm and S1/S2; Negative Murmur
GI: Soft, Nondistended, Normal Bowel Sounds and Tender (RUQ)
Musculoskeletal: No Clubbing, No Cyanosis and No Edema
Neuro: Awake, AO x 3 and No Motor Deficits
Psych: Calm
[2023-05-24 11:46] VITALS: BP 133/73
[2023-05-24] MEDS: DUPHALAC/CHRONULAC 20 GRAMS PO (12:25)
[2023-05-24] MEDS: SENNA SYRUP 8.80000000000000071 MG PO (12:25)
--- NOTE | 2023-05-24 14:46 | CM ---
Anticipate discharge when tolerating diet and has bowel function. Discharge Plan of Care: Anticipate home with no needs.
[2023-05-24 15:36] VITALS: BP 127/74
--- NOTE | 2023-05-24 18:40 | W.DCSUMMARY ---
Discharge Summary
Discharge Data
Date of Admission: 05/22/23
Date of Discharge: 05/24/23
-
Pending Results: No
Hospital Course
58-year-old male past medical history of type 2 diabetes, chronic back pain on opioids daily basis, hyperlipidemia, GERD, deficient anemia, arthritis was presented with right upper quadrant pain. Patient underwent MRI. Patient was found to have
acute calculus cholecystitis. Patient was eval by general surgery. Patient underwent laparoscopic cholecystectomy with cholangiogram. Show postop antibiotics were discontinued. Patient was tolerating diet. Patient was passing flatulence.
General surgery evaluated patient and cleared patient for discharge. Patient discharged home with recommendation to follow-up outpatient with general surgery for postop follow-up.
Discharge Plan
-
Patient Disposition: Home (Routine Discharge)
Discharge Diagnosis/Procedures: Acute calculus cholecystitis status post laparoscopic cholecystectomy, type 2 diabetes mellitus, acute constipation, chronic back pain and chronic oral opiates with dependency, essential hypertension, hyperlipidemia,
gastroesophageal reflux disease, history of iron deficiency, history of arthritis
Condition: Good
Diet: Low Fat
Activity: As tolerated
Driving Restrictions: As prior to admission
Bathing Restrictions: OK to Shower
Referrals:
Damon Ramos MD [Active] -
Jorge Alberto Patel, [Family Provider] - in less than 1 week
Additional Discharge Medication Instructions: Instructions following Laparoscopic Cholecystectomy
Please call [phone] if you have any questions or concerns after your surgery.
Wound Care:
Your incisions are covered with skin glue which will come off on its own in 5-10 days.
It is ok to shower the day after your surgery. Do not scrub the incisions, let soap and water wash over them and pat dry.
� Bruising around your incisions is normal.
� Using ice packs will help minimize this swelling.
� No swimming or soaking incisions for 1 week.
� Your stitches will dissolve and do not need to be removed.
Urinary retention:
If you are unable to urinate 6-8 hours after your surgery, please call [phone] to discuss further management.
Activity:
No heavy lifting more than 15 pounds for the next 3 weeks, then you may gradually lift heavier objects as tolerated by discomfort. Otherwise activity as tolerated by your comfort level.
Pain Management:
Use Tylenol, ibuprofen and ice packs to treat your pain.
� You may take 650 milligrams of Tylenol (Max 3 grams per day) every 6 hours, and 600 mg of ibuprofen also every 6 hours. (you can alternate them every 3 hours)
� You may use an ice pack to your incision as needed.
� If you still have pain not controlled by these measures, take your prescription pain medication as prescribed.
Medications:
You may resume your home medications.
Bowel Medications:
Prescription pain medication can make you constipated. If you take this medication, also take colace 100 mg twice daily (this is over the counter). If this is not sufficient, you may take Miralax (polyethylene glycol) to help move your bowels.
Diet:
After your procedure, you should stick with a low-fat diet.
Driving restrictions:
No driving if you are taking prescription pain medication or if you think your normal reaction time and attentiveness has been slowed by your surgery.
Things to Look out for:
Worsening Abdominal pain, fever, jaundice, redness or drainage from incision
Call Doctor for:
Please call if you notice worsening redness or drainage from incision(s) lasting longer than 5 days after your surgery, any foul-smelling drainage from the incision, pain not controlled by pain medications, persistent nausea and vomiting, or for any
fevers greater than 101.3 F. The number for questions/concerns is [phone]
Follow-up:
A follow-up appointment will be scheduled with your surgeon in 3-4 weeks. Please call prior to your appointment if you have any questions or concerns. [phone]
Prescriptions:
New
ondansetron HCl 4 mg tablet
4 mg PO Q8H PRN (Reason: nausea and vomiting) Qty: 20 0RF
Continued
rabeprazole [AcipHex] 20 MG tablet,delayed release (DR/EC)
20 mg PO BID
cetirizine [Zyrtec] 10 MG tablet
10 mg PO HS
colesevelam [WelChol] 625 MG tablet
625 mg PO QPM
azelastine 1 SPRAY aerosol,spray
2 spray intranasal DAILY
Patient Comments:
each nostril
dicyclomine 20 mg tablet
20 mg PO TID PRN (Reason: abdominal pain) Qty: 10 0RF
losartan 50 mg Tablet
50 mg PO DAILY
carisoprodol 350 mg tablet
350 - 700 mg PO HS
Patient Comments:
05/22/2023: last filled 05/06/23, 60 tabs for [address] [id number]
cyanocobalamin (vitamin B-12) [Vitamin B-12] 1,000 mcg Tablet
1,000 mcg PO DAILY
aspirin 81 mg Tablet,Delayed Release (Dr/Ec)
81 mg PO DAILY
ascorbic acid (vitamin C) [Vitamin C] 500 mg Tablet
500 mg PO DAILY
ferrous sulfate 325 mg (65 mg iron) Tablet
325 mg PO DAILY
metformin 1,000 mg Tablet
1,000 mg PO BID
Levemir FlexPen 100 unit/mL (3 mL) Insulin Pen
10 unit SC HS
Patient Comments:
05/22/2023: Formulary changed to Gabriel but pt is finishing up his pen of Levemir
cholecalciferol (vitamin D3) [Vitamin D3] 25 mcg (1,000 unit) Tablet
50 mcg PO HS
Flonase Sensimist 27.5 mcg/actuation [place],Suspension
1 spray INTRANASAL DAILY
Nucynta 75 mg tablet
75 mg PO BID PRN (Reason: breakthrough pain)
Patient Comments:
05/22/2023: last filled 05/06/23, 30 tabs for [address] [id number]
Nucynta ER 100 mg tablet extended release 12 hr
100 mg PO Q12H
Patient Comments:
05/22/2023: last filled 05/06/23, 60 tabs for [address] [id number]
Nexlizet 180-10 mg tablet
1 tab PO DAILY
Mounjaro 10 mg/0.5 mL pen injector
10 mg SC FR
hydromorphone [Dilaudid] 2 mg Tablet
4 mg PO Q6H PRN (Reason: moderate-severe pain)
Patient Comments:
05/22/2023: last filled 07/15/22, 40 tabs for 3 days from [facility]
sennosides-docusate sodium [Senna with Docusate Sodium] 8.6-50 mg Tablet
1 tab PO BID
lactulose 10 gram/15 mL Solution
45 ml PO DAILY
Discharge Date and Time
Print Language: KAZAKH
[2023-05-24 19:24] VITALS: BP 141/83
== END 2023-05-24 19:29 | disposition home or self-care (01) | DRG 419 ==
LOC: 2 SOUTH 23:49
PROVIDERS: Clinical Nurse Specialist Family Health; Student in an Organized Health Care Education/Training Program; ADMITTING PHYSICIAN Hospitalist; ATTENDING PHYSICIAN Hospitalist; CONSULT PHYSICIAN Internal Medicine; CONSULT PHYSICIAN Surgery; EMERGENCY PHYSICIAN Emergency Medicine; FAMILY PHYSICIAN Family Medicine
PROC: 0FT44ZZ Resection of Gallbladder, Percutaneous Endoscopic Approach (ICD-10-PCS; 2023-05-23)
PROC: BF532Z0 Other Imaging of Gallbladder and Bile Ducts using Fluorescing Agent, Intraoperative (ICD-10-PCS; 2023-05-23)
DX: K80.00 Calculus of gallbladder with acute cholecystitis without obstruction (principal); K76.0 Fatty (change of) liver, not elsewhere classified; G89.29 Other chronic pain; E11.9 Type 2 diabetes mellitus without complications; I10 Essential (primary) hypertension; E78.5 Hyperlipidemia, unspecified; K21.9 Gastro-esophageal reflux disease without esophagitis; M19.90 Unspecified osteoarthritis, unspecified site; Z79.82 Long term (current) use of aspirin; K59.03 Drug induced constipation; D50.9 Iron deficiency anemia, unspecified
CPT/HCPCS: 88304; 74177; 74181; 74300; 76000; 76700; 80053; 80061; 81003; 82962; 83690; 83735; 85025; 93005; 96361; 96372; 96374; 96375; 97161; 99285; A4300; J1610; Q9967

== ENCOUNTER → 2023-05-30 12:12 | Outpatient (REF) | payer BC, SELFPAY ==
[2023-05-30 13:37] LABS: % Basophils 0.8 % (0-2); % Immature Granulocytes 0.5 % (0-0.5); % Lymphocytes 29.7 % (20.5-51.1); Absolute Basophils 0.1 10^3/uL (0-0.2); Absolute Eosinophils 0.2 10^3/uL (0-0.7); Absolute Lymphocytes 2.3 10^3/uL (1.2-3.4); Absolute Monocytes 0.7 10^3/uL (0.1-0.6); Absolute Neutrophils 4.4 10^3/uL (1.4-6.5); Hematocrit 34.5 % (39.0-52.0); Hemoglobin 11.8 g/dL (13.0-18.0); Mean Corp Hgb Conc. 34.2 g/dL (33.0-37.0); Mean Corpuscular Hgb 30.5 pg (27.0-31.0); Mean Corpuscular Volume 89.1 fL (80.0-94.0); Mean Platelet Volume 10.7 fL (7.4-10.4); Nucleated Red Blood Cells % 0 % (-); Platelet Count 357 10^3/uL (130-400); Red Blood Cell Count 3.87 10^6/uL (4.70-6.10); Red Cell Dist. Width 12.5 % (11.5-14.5); White Blood Cell Count 7.6 10^3/uL (4.8-10.8)
[2023-05-30 13:58] LABS: ALT (SGPT) 32 U/L (0-50); AST (SGOT) 24 U/L (17-59); Albumin 4.4 g/dl (3.5-5.0); Alkaline Phosphatase 144 U/L (38-126); Blood Urea Nitrogen 17 mg/dl (9-20); Calcium 9.5 mg/dl (8.4-10.2); Carbon Dioxide 26 mmol/L (22-30); Chloride 98 mmol/L (98-107); Glucose 79 mg/dl (70-99); Potassium 4.5 mmol/L (3.5-5.1); Sodium 138 mmol/L (135-145); Total Bilirubin 0.6 mg/dl (0.2-1.3); Total Protein 6.9 g/dl (6.3-8.2); eGFR > 60.00
== END ==
LOC: REG 12:12
PROVIDERS: ATTENDING PHYSICIAN Family Medicine
DX: Z90.49 Acquired absence of other specified parts of digestive tract (principal); R74.01 Elevation of levels of liver transaminase levels; D64.9 Anemia, unspecified
CPT/HCPCS: 36415; 80053; 85025

== ENCOUNTER → 2023-06-21 11:20 | Outpatient (REF) | payer BC, SELFPAY | LOC: RAD 11:20 | PROVIDERS: ATTENDING PHYSICIAN Otolaryngology; FAMILY PHYSICIAN Family Medicine | DX: J32.0 Chronic maxillary sinusitis (principal) | CPT/HCPCS: 70486 ==

== ENCOUNTER → 2023-06-27 16:35 | Outpatient (REF) | payer OTHER, SELFPAY | LOC: RAD 16:35 | PROVIDERS: ATTENDING PHYSICIAN Neurological Surgery; FAMILY PHYSICIAN Family Medicine | DX: Z98.1 Arthrodesis status (principal) | CPT/HCPCS: 72100 ==

== ENCOUNTER → 2023-08-14 11:18 | Outpatient (REF) | payer BC, SELFPAY ==
[2023-08-14 12:18] LABS: % Basophils 0.9 % (0-2); % Immature Granulocytes 0.2 % (0-0.5); % Lymphocytes 37.2 % (20.5-51.1); % Monocytes 8.6 % (1.7-9.3); % Neutrophils 49.1 % (42.2-75.2); Absolute Basophils 0.1 10^3/uL (0-0.2); Absolute Eosinophils 0.2 10^3/uL (0-0.7); Absolute Lymphocytes 2.1 10^3/uL (1.2-3.4); Absolute Monocytes 0.5 10^3/uL (0.1-0.6); Absolute Neutrophils 2.7 10^3/uL (1.4-6.5); Hematocrit 34.6 % (39.0-52.0); Hemoglobin 11.6 g/dL (13.0-18.0); Mean Corp Hgb Conc. 33.5 g/dL (33.0-37.0); Mean Corpuscular Hgb 30.1 pg (27.0-31.0); Mean Corpuscular Volume 89.9 fL (80.0-94.0); Mean Platelet Volume 10.9 fL (7.4-10.4); Nucleated Red Blood Cells % 0 % (-); Platelet Count 322 10^3/uL (130-400); Red Blood Cell Count 3.85 10^6/uL (4.70-6.10); Red Cell Dist. Width 12.3 % (11.5-14.5); White Blood Cell Count 5.6 10^3/uL (4.8-10.8)
[2023-08-14 12:46] LABS: ALT (SGPT) 15 U/L (0-50); AST (SGOT) 25 U/L (17-59); Albumin 4.4 g/dl (3.5-5.0); Alkaline Phosphatase 117 U/L (38-126); Blood Urea Nitrogen 21 mg/dl (9-20); Calcium 9.8 mg/dl (8.4-10.2); Carbon Dioxide 26 mmol/L (22-30); Chloride 106 mmol/L (98-107); Glucose 88 mg/dl (70-99); HDL Cholesterol 37 mg/dl; LDL Cholesterol, Calculated 63 mg/dl; Potassium 4.3 mmol/L (3.5-5.1); Sodium 142 mmol/L (135-145); Total Bilirubin 0.3 mg/dl (0.2-1.3); Total Cholesterol 129 mg/dl (50-199); Total Protein 6.9 g/dl (6.3-8.2); Triglyceride 148 mg/dl (10-149); Very Low Density Lipoprotein 29 mg/dl (0-30); eGFR > 60.00
[2023-08-14 13:34] LABS: Microalbumin, Random Urine 1.9 mg/dl (0.6-1.7); Microalbumin/creatinine Ratio 7.1 mg/g
[2023-08-14 13:38] LABS: Glycohemoglobin (HgbA1c) 5.6 % (4.0-5.6)
[2023-08-14 13:45] LABS: Urine Protein < 5 mg/dl
== END ==
LOC: REG 11:18
PROVIDERS: ATTENDING PHYSICIAN Physician Assistant; FAMILY PHYSICIAN Family Medicine
DX: E11.65 Type 2 diabetes mellitus with hyperglycemia (principal)
CPT/HCPCS: 36415; 80053; 80061; 82043; 82570; 83036; 84156; 85025

== ENCOUNTER → 2023-08-31 11:44 | Outpatient (REF) | payer BC, SELFPAY ==
[2023-08-31 12:34] LABS: ALT (SGPT) 15 U/L (0-50); AST (SGOT) 25 U/L (17-59); Albumin 4.5 g/dl (3.5-5.0); Alkaline Phosphatase 119 U/L (38-126); Blood Urea Nitrogen 21 mg/dl (9-20); Calcium 9.8 mg/dl (8.4-10.2); Carbon Dioxide 29 mmol/L (22-30); Chloride 104 mmol/L (98-107); Glucose 89 mg/dl (70-99); HDL Cholesterol 43 mg/dl; LDL Cholesterol, Calculated 102 mg/dl; Potassium 4.3 mmol/L (3.5-5.1); Sodium 140 mmol/L (135-145); Total Bilirubin 0.4 mg/dl (0.2-1.3); Total Cholesterol 167 mg/dl (50-199); Total Protein 6.9 g/dl (6.3-8.2); Triglyceride 113 mg/dl (10-149); Very Low Density Lipoprotein 22 mg/dl (0-30); eGFR > 60.00
== END ==
LOC: REG 11:44
PROVIDERS: ATTENDING PHYSICIAN Internal Medicine; FAMILY PHYSICIAN Family Medicine
DX: R93.1 Abnormal findings on diagnostic imaging of heart and coronary circulation (principal); I70.0 Atherosclerosis of aorta
CPT/HCPCS: 36415; 80053; 80061

== ENCOUNTER → 2023-09-04 17:09 | Outpatient (REF) | payer BC, SELFPAY ==
[2023-09-04 18:29] LABS: PSA, Total - Diagnostic 0.37 ng/ml (0.0-4.0)
== END ==
LOC: REG 17:09
PROVIDERS: ATTENDING PHYSICIAN Urology; FAMILY PHYSICIAN Family Medicine
DX: N40.0 Benign prostatic hyperplasia without lower urinary tract symptoms (principal)
CPT/HCPCS: 36415; 84153

== ENCOUNTER → 2023-09-28 11:20 | Outpatient (REF) | payer BC, SELFPAY ==
[2023-09-28 12:58] LABS: % Basophils 0.7 % (0-2); % Eosinophils 1.8 % (0-6); % Immature Granulocytes 0.5 % (0-0.5); % Lymphocytes 34.9 % (20.5-51.1); % Monocytes 9.1 % (1.7-9.3); Absolute Basophils 0.1 10^3/uL (0-0.2); Absolute Eosinophils 0.1 10^3/uL (0-0.7); Absolute Lymphocytes 2.7 10^3/uL (1.2-3.4); Absolute Monocytes 0.7 10^3/uL (0.1-0.6); Absolute Neutrophils 4.1 10^3/uL (1.4-6.5); Hematocrit 36.9 % (39.0-52.0); Hemoglobin 12.5 g/dL (13.0-18.0); Mean Corp Hgb Conc. 33.9 g/dL (33.0-37.0); Mean Corpuscular Hgb 29.3 pg (27.0-31.0); Mean Corpuscular Volume 86.4 fL (80.0-94.0); Mean Platelet Volume 10.1 fL (7.4-10.4); Nucleated Red Blood Cells % 0 % (-); Platelet Count 320 10^3/uL (130-400); Red Blood Cell Count 4.27 10^6/uL (4.70-6.10); Red Cell Dist. Width 12.4 % (11.5-14.5); White Blood Cell Count 7.7 10^3/uL (4.8-10.8)
[2023-09-28 13:28] LABS: Iron 116 ug/dl (49-181)
[2023-09-28 13:37] LABS: Percent Saturation 27 % (20-50); Total Iron Binding Capacity 428 ug/dl (261-462)
[2023-09-28 14:18] LABS: Vitamin B12 756 pg/ml (239-931)
== END ==
LOC: REG 11:20
PROVIDERS: ATTENDING PHYSICIAN Specialist; FAMILY PHYSICIAN Family Medicine
DX: D64.9 Anemia, unspecified (principal)
CPT/HCPCS: 36415; 82607; 82728; 83540; 83550; 85025

== ENCOUNTER → 2023-11-21 18:07 | Outpatient (REF) | payer BC, SELFPAY | LOC: RAD 18:07 | PROVIDERS: ATTENDING PHYSICIAN Family Medicine; FAMILY PHYSICIAN Family Medicine | DX: R22.42 Localized swelling, mass and lump, left lower limb (principal) | CPT/HCPCS: 93971 ==

== ENCOUNTER 2023-11-24 12:52 | Emergency (ER) | payer BC, SELFPAY ==
[2023-11-24 12:54] VITALS: BP 117/77
[2023-11-24 13:13] LABS: % Basophils 0.7 % (0-2); % Eosinophils 4.9 % (0-6); % Immature Granulocytes 0.2 % (0-0.5); % Lymphocytes 39.8 % (20.5-51.1); % Monocytes 9.6 % (1.7-9.3); % Neutrophils 44.8 % (42.2-75.2); Absolute Eosinophils 0.3 10^3/uL (0-0.7); Absolute Lymphocytes 2.3 10^3/uL (1.2-3.4); Absolute Monocytes 0.6 10^3/uL (0.1-0.6); Absolute Neutrophils 2.6 10^3/uL (1.4-6.5); Hemoglobin 11.8 g/dL (13.0-18.0); Mean Corp Hgb Conc. 33.7 g/dL (33.0-37.0); Mean Corpuscular Hgb 30.5 pg (27.0-31.0); Mean Corpuscular Volume 90.4 fL (80.0-94.0); Mean Platelet Volume 10.8 fL (7.4-10.4); Nucleated Red Blood Cells % 0 % (-); Platelet Count 295 10^3/uL (130-400); Red Blood Cell Count 3.87 10^6/uL (4.70-6.10); Red Cell Dist. Width 13.5 % (11.5-14.5); White Blood Cell Count 5.7 10^3/uL (4.8-10.8)
[2023-11-24 13:49] LABS: ALT (SGPT) 18 U/L (0-50); AST (SGOT) 22 U/L (17-59); Albumin 4.7 g/dl (3.5-5.0); Alkaline Phosphatase 82 U/L (38-126); Blood Urea Nitrogen 25 mg/dl (9-20); Calcium 9.7 mg/dl (8.4-10.2); Carbon Dioxide 27 mmol/L (22-30); Chloride 103 mmol/L (98-107); Glucose 96 mg/dl (70-99); Potassium 4.5 mmol/L (3.5-5.1); Sodium 144 mmol/L (135-145); Total Bilirubin 0.3 mg/dl (0.2-1.3); Total Protein 7.1 g/dl (6.3-8.2); eGFR > 60.00
--- NOTE | 2023-11-24 15:15 | ED.GENMED ---
History of Present Illness
General
Chief Complaint: Skin Problem
Source: patient
Exam Limitations: none
Time Seen by Provider: 11/24/23 15:15
Nursing documentation reviewed up to this point in time: agreed with
History of Present Illness
History of Present Illness:
58-year-old male with history HLD, GERD, IDDM presents for 'cellulitis' to left lower extremity. Pt has a significant history of spine problems with numerous surgeries, the last being Cervical spine fusion 10/02/23 and cannot take anti inflammatories
for 12 weeks. Has also been on his usual seasonal allergy meds/antihistamines (Flonase, Azaline sprays and Zazole was increased from 5 to 10 mg 5 days ago). Took Keflex 500 mg TID for 7 days with no change in symptoms, now on Doxycycline day 5 of 7
with no change in symptoms. Had neg US. Area is not worse, just no better. Still with mild swelling and redness, intermittent stinging sensation. Pain is more annoying than anything.
Because of his significant pmhx (had osteomyelitis from a lower spine abscess) pt and admit they get concerned even with seemingly non worrisome symptoms
Has had no fever/chills. No n/v.
Past History
Past History
ED Past Medical History: GERD and IDDM
ED Past Surgical History: Orthopedic
Social History
Tobacco: Non-smoker
Alcohol: Occasional
Drug: None
Personal:
Living: with family
Employment: Employed
Family History
Family History: Other
Review of Systems
Review of Systems
Allergies reviewed?: Yes
All Other Systems: ROS reviewed and negative except as documented in HPI and ROS
Constitutional: Denies fever or chills
Skin: Reports other (local redness, intermittent stinging pains left lower leg/sullivan)
Phy Exam
Physical Exam
Physical Exam:
GENERAL: No acute distress. A&Ox3.
CONSTITUTIONAL: Afebrile.
RESPIRATORY: Regular respirations, nonlabored, lungs clear.
CARDIOVASCULAR: Regular rate and rhythm, no murmurs, no rubs.
GI: Soft, nontender
MUSCULOSKELETAL: Moves with ease. Well perfused.
SKIN: Warm, dry, pink. Local area about 5 x 5 cm mild erythema with tiny superficial scattered petechiae, very mild swelling, mildly tender to touch mid to lateral aspect left lower sullivan area. No lymphangitis, distal n/v intact.
PSYCH: Normal mood and affect. Well kept, interactive and appropriate
NEUROLOGIC: Awake, alert and oriented. No focal neurological deficits
Course
Orders/Labs/Results
Orders:
Orders
11/24/23 13:00
CMP [Comprehensive Metabolic Panel] Urgent
Complete Blood Count/With Diff Urgent
Abnormal Lab Results
11/24/23
13:00
RBC 3.87 L 10^6/uL
(4.70-6.10)
Hgb 11.8 L g/dL
(13.0-18.0)
Hct 35.0 L %
(39.0-52.0)
MPV 10.8 H fL
(7.4-10.4)
Monocytes % 9.6 H %
(1.7-9.3)
BUN 25 H mg/dl
(9-20)
11/24/23 13:00
11/24/23 13:00
Vital Signs
Initial and Last Documented VS:
Initial Vital Signs
Temp Pulse Resp BP Pulse Ox
97.7 F 81 16 117/77 98
11/24/23 12:54 11/24/23 12:54 11/24/23 12:54 11/24/23 12:54 11/24/23 12:54
Last Documented Vital Signs
Temp Pulse Resp BP Pulse Ox
97.7 F 75 16 121/76 100
11/24/23 12:54 11/24/23 16:26 11/24/23 16:26 11/24/23 16:26 11/24/23 16:26
MDM/Problems Addressed
Differential Diagnosis Includes:
insect bite, cellulitis
MDM/Problems Addressed:
58-year-old male with history HLD, GERD, IDDM presents for 'cellulitis' to left lower extremity. Pt has a significant history of spine problems with numerous surgeries, the last being Cervical spine fusion 10/02/23 and cannot take anti inflammatories
for 12 weeks. Has also been on his usual seasonal allergy meds/antihistamines (Flonase, Azaline sprays and Zazole was increased from 5 to 10 mg 5 days ago). Took Keflex 500 mg TID for 7 days with no change in symptoms, now on Doxycycline day 5 of 7
with no change in symptoms. Had neg US. Area is not worse, just no better. Still with mild swelling and redness, intermittent stinging sensation. Pain is more annoying than anything.
Because of his significant pmhx (had osteomyelitis from a lower spine abscess) pt and admit they get concerned even with seemingly non worrisome symptoms and that is why they are here.
Has had no fever/chills. No n/v.
Afebrile, NAD
Patient afebrile, not much improvement after 2 separate antibiotics, history of feeling a localized 'sting' just prior to symptoms is most consistent with a bug/insect bite and a localized reaction from its venom
No sign of cellulitis
NSAIDs, steroids, antihistamines discussed. He cannot take NSAIDs due to recent spine surgery, is already on antihistamines
Not worsening, not much improvement pain at worst gets to 4/10 more annoying than anything
He will try topical NSAID Voltaren and check with his ortho to be sure it's ok
*Critical Care Note
Total Time (30-74mins, 75-104mins- exclusive of procedures): Not Applicable
ED Attending Note
-
Portions of this chart may have been created with voice recognition software.� Occasional wrong word or��sound alike� substitutions may have occurred due to the inherent limitations of voice recognition software.
Discharge Plan
Departure
Patient Disposition: Home (Routine Discharge)
Date of Disposition: 11/24/23
Time of Disposition: 16:10
Patient with high blood pressure during this ER visit?: No
Condition: Good
Discharge Problem:
Insect bite
Instructions: Insect bites and stings
Prescriptions:
No Action
rabeprazole [AcipHex] 20 MG tablet,delayed release (DR/EC)
20 mg PO BID
cetirizine [Zyrtec] 10 MG tablet
10 mg PO HS
colesevelam [WelChol] 625 MG tablet
625 mg PO QPM
azelastine 1 SPRAY aerosol,spray
2 spray intranasal DAILY
Patient Comments:
each nostril
dicyclomine 20 mg tablet
20 mg PO TID PRN (Reason: abdominal pain) Qty: 10 0RF
losartan 50 mg Tablet
50 mg PO DAILY
carisoprodol 350 mg tablet
350 - 700 mg PO HS
Patient Comments:
05/22/2023: last filled 05/06/23, 60 tabs for 30 days from [id number]
cyanocobalamin (vitamin B-12) [Vitamin B-12] 1,000 mcg Tablet
1,000 mcg PO DAILY
aspirin 81 mg Tablet,Delayed Release (Dr/Ec)
81 mg PO DAILY
ascorbic acid (vitamin C) [Vitamin C] 500 mg Tablet
500 mg PO DAILY
ferrous sulfate 325 mg (65 mg iron) Tablet
325 mg PO DAILY
metformin 1,000 mg Tablet
1,000 mg PO BID
Levemir FlexPen 100 unit/mL (3 mL) Insulin Pen
10 unit SC HS
Patient Comments:
05/22/2023: Formulary changed to Gabriel but pt is finishing up his pen of Levemir
cholecalciferol (vitamin D3) [Vitamin D3] 25 mcg (1,000 unit) Tablet
50 mcg PO HS
Flonase Sensimist 27.5 mcg/actuation [place],Suspension
1 spray INTRANASAL DAILY
Nucynta 75 mg tablet
75 mg PO BID PRN (Reason: breakthrough pain)
Patient Comments:
05/22/2023: last filled 05/06/23, 30 tabs for 15 days from [id number]
Nucynta ER 100 mg tablet extended release 12 hr
100 mg PO Q12H
Patient Comments:
05/22/2023: last filled 05/06/23, 60 tabs for 30 days from [id number]
Nexlizet 180-10 mg tablet
1 tab PO DAILY
Mounjaro 10 mg/0.5 mL pen injector
10 mg SC FR
hydromorphone [Dilaudid] 2 mg Tablet
4 mg PO Q6H PRN (Reason: moderate-severe pain)
Patient Comments:
05/22/2023: last filled 07/15/22, 40 tabs for 3 days from [facility]
sennosides-docusate sodium [Senna with Docusate Sodium] 8.6-50 mg Tablet
1 tab PO BID
lactulose 10 gram/15 mL Solution
45 ml PO DAILY
ondansetron HCl 4 mg tablet
4 mg PO Q8H PRN (Reason: nausea and vomiting) Qty: 20 0RF
Referrals:
Jorge Alberto Patel, DO [Family Provider] - As needed
Activity Restrictions/Additional Instructions:
As we discussed, the area is most consistent with an insect bite. No sign of worrisome cellulitis at this time
Finish the last 3 days of your Doxycycline
Try Voltaren topical anti inflammatory/analgesic and observed over the next 2 weeks.
Ask your spine doctor tomorrow if ok to continue Voltaren.
Interventions
Interventions:
*Risk Screen - Suicide Last Done: 11/24/23 12:54
*General Assessment Last Done: 11/24/23 12:54
*Neglect/Abuse Screening Last Done: 11/24/23 16:26
ED- Fall Risk Assessment Last Done: 11/24/23 16:26
*ED COVID-19 Vaccine History Last Done: 11/24/23 12:54
*Nursing Disposition Last Done: 11/24/23 16:26
ED-Skin Assessment Last Done: 11/24/23 16:26
Discharge Date and Time
Discharge Date/Time: 11/24/23 16:26
Print Language: UZBEK
[2023-11-24 16:26] VITALS: BP 121/76
== END 2023-11-24 16:26 | disposition home or self-care (01) ==
LOC: EMR 12:52
PROVIDERS: Emergency Medicine; EMERGENCY PHYSICIAN Emergency Medicine; FAMILY PHYSICIAN Family Medicine
DX: M79.662 Pain in left lower leg (principal); L53.9 Erythematous condition, unspecified; R60.0 Localized edema; R23.3 Spontaneous ecchymoses; W57.XXXA Bitten or stung by nonvenomous insect and other nonvenomous arthropods, initial encounter; E78.5 Hyperlipidemia, unspecified; E11.9 Type 2 diabetes mellitus without complications; K21.9 Gastro-esophageal reflux disease without esophagitis; M46.26 Osteomyelitis of vertebra, lumbar region; M19.90 Unspecified osteoarthritis, unspecified site; M43.22 Fusion of spine, cervical region; Z98.890 Other specified postprocedural states; Z79.4 Long term (current) use of insulin; Z88.6 Allergy status to analgesic agent; Z88.0 Allergy status to penicillin; Z88.2 Allergy status to sulfonamides; Z79.82 Long term (current) use of aspirin
CPT/HCPCS: 99283; 80053; 85025

== ENCOUNTER → 2023-11-27 07:39 | Outpatient (REF) | payer BC, SELFPAY ==
[2023-11-27 09:02] LABS: % Basophils 1.1 % (0-2); % Eosinophils 4.4 % (0-6); % Immature Granulocytes 0.3 % (0-0.5); % Lymphocytes 41.5 % (20.5-51.1); % Monocytes 9.1 % (1.7-9.3); % Neutrophils 43.6 % (42.2-75.2); Absolute Basophils 0.1 10^3/uL (0-0.2); Absolute Eosinophils 0.3 10^3/uL (0-0.7); Absolute Lymphocytes 2.7 10^3/uL (1.2-3.4); Absolute Monocytes 0.6 10^3/uL (0.1-0.6); Absolute Neutrophils 2.9 10^3/uL (1.4-6.5); Hematocrit 35.2 % (39.0-52.0); Hemoglobin 11.8 g/dL (13.0-18.0); Mean Corp Hgb Conc. 33.5 g/dL (33.0-37.0); Mean Corpuscular Hgb 29.1 pg (27.0-31.0); Mean Corpuscular Volume 86.9 fL (80.0-94.0); Nucleated Red Blood Cells % 0 % (-); Platelet Count 319 10^3/uL (130-400); Red Blood Cell Count 4.05 10^6/uL (4.70-6.10); Red Cell Dist. Width 13.7 % (11.5-14.5); White Blood Cell Count 6.6 10^3/uL (4.8-10.8)
[2023-11-27 10:22] LABS: ALT (SGPT) 16 U/L (0-50); AST (SGOT) 21 U/L (17-59); HDL Cholesterol 42 mg/dl; Iron 130 ug/dl (49-181); LDL Cholesterol, Calculated 39 mg/dl; Total Cholesterol 110 mg/dl (50-199); Triglyceride 148 mg/dl (10-149); Very Low Density Lipoprotein 29 mg/dl (0-30)
[2023-11-27 10:32] LABS: Percent Saturation 29 % (20-50); Total Iron Binding Capacity 446 ug/dl (261-462)
[2023-11-27 10:55] LABS: Ferritin 25.6 ng/ml (17.9-464.0)
== END ==
LOC: REG 07:39
PROVIDERS: ATTENDING PHYSICIAN Internal Medicine; FAMILY PHYSICIAN Family Medicine; REFERRING PHYSICIAN Specialist
DX: I70.0 Atherosclerosis of aorta (principal); R93.1 Abnormal findings on diagnostic imaging of heart and coronary circulation; E78.00 Pure hypercholesterolemia, unspecified; D64.9 Anemia, unspecified
CPT/HCPCS: 36415; 80061; 82728; 83540; 83550; 84450; 84460; 85025

== ENCOUNTER → 2023-12-07 11:44 | Outpatient (REF) | payer BC, SELFPAY ==
[2023-12-07 12:09] LABS: % Basophils 0.4 % (0-2); % Eosinophils 0.8 % (0-6); % Immature Granulocytes 0.5 % (0-0.5); % Lymphocytes 29.9 % (20.5-51.1); % Monocytes 8.6 % (1.7-9.3); % Neutrophils 59.8 % (42.2-75.2); Absolute Eosinophils 0.1 10^3/uL (0-0.7); Absolute Lymphocytes 2.2 10^3/uL (1.2-3.4); Absolute Monocytes 0.6 10^3/uL (0.1-0.6); Absolute Neutrophils 4.4 10^3/uL (1.4-6.5); Hematocrit 33.4 % (39.0-52.0); Hemoglobin 11.1 g/dL (13.0-18.0); Mean Corp Hgb Conc. 33.2 g/dL (33.0-37.0); Mean Corpuscular Hgb 29.1 pg (27.0-31.0); Mean Corpuscular Volume 87.7 fL (80.0-94.0); Mean Platelet Volume 10.5 fL (7.4-10.4); Nucleated Red Blood Cells % 0 % (-); Platelet Count 332 10^3/uL (130-400); Red Blood Cell Count 3.81 10^6/uL (4.70-6.10); Red Cell Dist. Width 13.7 % (11.5-14.5); White Blood Cell Count 7.3 10^3/uL (4.8-10.8)
[2023-12-07 12:22] LABS: ALT (SGPT) 18 U/L (0-50); AST (SGOT) 22 U/L (17-59); Albumin 4.7 g/dl (3.5-5.0); Alkaline Phosphatase 94 U/L (38-126); Blood Urea Nitrogen 25 mg/dl (9-20); Calcium 9.7 mg/dl (8.4-10.2); Carbon Dioxide 29 mmol/L (22-30); Chloride 104 mmol/L (98-107); Glucose 110 mg/dl (70-99); HDL Cholesterol 55 mg/dl; LDL Cholesterol, Calculated 22 mg/dl; Potassium 4.6 mmol/L (3.5-5.1); Sodium 147 mmol/L (135-145); Total Bilirubin 0.3 mg/dl (0.2-1.3); Total Cholesterol 90 mg/dl (50-199); Total Protein 7.3 g/dl (6.3-8.2); Triglyceride 67 mg/dl (10-149); Very Low Density Lipoprotein 13 mg/dl (0-30); eGFR > 60.00
[2023-12-08 11:16] LABS: Glycohemoglobin (HgbA1c) 5.7 % (4.0-5.6)
== END ==
LOC: REG 11:44
PROVIDERS: ATTENDING PHYSICIAN Physician Assistant; FAMILY PHYSICIAN Family Medicine
DX: E11.65 Type 2 diabetes mellitus with hyperglycemia (principal)
CPT/HCPCS: 36415; 80053; 80061; 83036; 85025

== ENCOUNTER 2024-01-02 06:21 | Day surgery (SDC) | payer BC, SELFPAY ==
[2024-01-02 07:23] LABS: Glucose - Point of Care 96 mg/dl (70-99)
== END 2024-01-02 08:50 | disposition home or self-care (01) ==
LOC: GI 06:21
PROVIDERS: ATTENDING PHYSICIAN Specialist
DX: D12.3 Benign neoplasm of transverse colon (principal); D12.5 Benign neoplasm of sigmoid colon; K57.30 Diverticulosis of large intestine without perforation or abscess without bleeding; D12.8 Benign neoplasm of rectum; D50.9 Iron deficiency anemia, unspecified; K64.8 Other hemorrhoids
CPT/HCPCS: 45385; 45380; 88305; 82962

== ENCOUNTER → 2024-02-25 10:04 | Outpatient (REF) | payer BC, SELFPAY ==
[2024-02-25 11:27] LABS: % Basophils 0.9 % (0-2); % Eosinophils 5.6 % (0-6); % Immature Granulocytes 0.2 % (0-0.5); % Lymphocytes 31.5 % (20.5-51.1); % Monocytes 9.1 % (1.7-9.3); % Neutrophils 52.7 % (42.2-75.2); Absolute Basophils 0.1 10^3/uL (0-0.2); Absolute Eosinophils 0.3 10^3/uL (0-0.7); Absolute Lymphocytes 1.7 10^3/uL (1.2-3.4); Absolute Monocytes 0.5 10^3/uL (0.1-0.6); Absolute Neutrophils 2.8 10^3/uL (1.4-6.5); Hematocrit 38.6 % (39.0-52.0); Hemoglobin 12.7 g/dL (13.0-18.0); Mean Corp Hgb Conc. 32.9 g/dL (33.0-37.0); Mean Corpuscular Hgb 29.4 pg (27.0-31.0); Mean Corpuscular Volume 89.4 fL (80.0-94.0); Mean Platelet Volume 10.7 fL (7.4-10.4); Nucleated Red Blood Cells % 0 % (-); Platelet Count 348 10^3/uL (130-400); Red Blood Cell Count 4.32 10^6/uL (4.70-6.10); White Blood Cell Count 5.4 10^3/uL (4.8-10.8)
[2024-02-25 12:33] LABS: Iron 100 ug/dl (49-181)
[2024-02-25 12:38] LABS: Ferritin 14.3 ng/ml (17.9-464.0)
[2024-02-25 12:43] LABS: Percent Saturation 20 % (20-50); Total Iron Binding Capacity 492 ug/dl (261-462)
== END ==
LOC: RAD 10:04
PROVIDERS: ATTENDING PHYSICIAN Otolaryngology; FAMILY PHYSICIAN Family Medicine; REFERRING PHYSICIAN Specialist
DX: R13.14 Dysphagia, pharyngoesophageal phase (principal); D64.9 Anemia, unspecified
CPT/HCPCS: 36415; 74221; 82728; 83540; 83550; 85025

== ENCOUNTER → 2024-02-25 16:36 | Outpatient (REF) | payer BC, SELFPAY ==
[2024-02-25 18:03] LABS: % Basophils 0.7 % (0-2); % Immature Granulocytes 0.3 % (0-0.5); Absolute Basophils 0.1 10^3/uL (0-0.2); Absolute Eosinophils 0.2 10^3/uL (0-0.7); Absolute Lymphocytes 2.4 10^3/uL (1.2-3.4); Absolute Monocytes 0.7 10^3/uL (0.1-0.6); Absolute Neutrophils 4.1 10^3/uL (1.4-6.5); Hematocrit 36.3 % (39.0-52.0); Hemoglobin 11.9 g/dL (13.0-18.0); Mean Corp Hgb Conc. 32.8 g/dL (33.0-37.0); Mean Corpuscular Hgb 29.3 pg (27.0-31.0); Mean Corpuscular Volume 89.4 fL (80.0-94.0); Mean Platelet Volume 10.6 fL (7.4-10.4); Nucleated Red Blood Cells % 0 % (-); Platelet Count 344 10^3/uL (130-400); Red Blood Cell Count 4.06 10^6/uL (4.70-6.10); Red Cell Dist. Width 11.9 % (11.5-14.5); White Blood Cell Count 7.4 10^3/uL (4.8-10.8)
[2024-02-25 18:06] LABS: ALT (SGPT) 15 U/L (0-50); AST (SGOT) 21 U/L (17-59); Albumin 4.6 g/dl (3.5-5.0); Alkaline Phosphatase 98 U/L (38-126); Blood Urea Nitrogen 21 mg/dl (9-20); Calcium 9.7 mg/dl (8.4-10.2); Carbon Dioxide 27 mmol/L (22-30); Chloride 97 mmol/L (98-107); Glucose 91 mg/dl (70-99); Potassium 4.4 mmol/L (3.5-5.1); Sodium 137 mmol/L (135-145); Total Bilirubin 0.3 mg/dl (0.2-1.3); Total Protein 7.1 g/dl (6.3-8.2); eGFR > 60.00
[2024-02-25 18:07] LABS: LDH 125 U/L (120-246)
== END ==
LOC: REG 16:36
PROVIDERS: ATTENDING PHYSICIAN Dermatology; FAMILY PHYSICIAN Family Medicine
DX: Z85.820 Personal history of malignant melanoma of skin (principal)
CPT/HCPCS: 36415; 71046; 80053; 83615; 85025

== ENCOUNTER → 2024-03-11 08:15 | Outpatient (REF) | payer BC, SELFPAY | LOC: RST 08:15 | PROVIDERS: ATTENDING PHYSICIAN Otolaryngology; FAMILY PHYSICIAN Family Medicine | DX: R13.10 Dysphagia, unspecified (principal) | CPT/HCPCS: 74230; 92611 ==

== ENCOUNTER 2024-03-23 06:05 | Day surgery (SDC) | payer BC, SELFPAY ==
[2024-03-12 10:50] LABS: Hematocrit 34.8 % (39.0-52.0); Hemoglobin 11.6 g/dL (13.0-18.0); Mean Corp Hgb Conc. 33.3 g/dL (33.0-37.0); Mean Corpuscular Hgb 29.8 pg (27.0-31.0); Mean Corpuscular Volume 89.5 fL (80.0-94.0); Mean Platelet Volume 10.8 fL (7.4-10.4); Platelet Count 286 10^3/uL (130-400); Red Blood Cell Count 3.89 10^6/uL (4.70-6.10); Red Cell Dist. Width 12.7 % (11.5-14.5); White Blood Cell Count 5.8 10^3/uL (4.8-10.8)
[2024-03-12 11:41] LABS: Blood Urea Nitrogen 25 mg/dl (9-20); Calcium 8.9 mg/dl (8.4-10.2); Carbon Dioxide 29 mmol/L (22-30); Chloride 103 mmol/L (98-107); Glucose 97 mg/dl (70-99); Potassium 4.4 mmol/L (3.5-5.1); Sodium 144 mmol/L (135-145); eGFR > 60.00
[2024-03-23] VITALS (9 sets, daily range): BP systolic 107–127; BP diastolic 67–81; BMI 25.5
[2024-03-23] MEDS: MOBIC 15 MG PO (08:10)
[2024-03-23] MEDS: TYLENOL 1000 MG PO (08:10)
[2024-03-23] MEDS: NORMOSOL-R/PLASMALYTE-A 1000 IV (08:20)
[2024-03-23] MEDS: VANCOCIN 200 IV (08:21)
[2024-03-23 08:23] LABS: Glucose - Point of Care 102 mg/dl (70-99)
[2024-03-23 12:38] LABS: Glucose - Point of Care 151 mg/dl (70-99)
[2024-03-23] MEDS: DILAUDID 0.5 MG IV ×3 (12:45→13:15)
[2024-03-23] MEDS: DEMEROL 12.5 MG IV ×2 (13:00→13:15)
--- NOTE | 2024-03-23 14:18 | PTCARENOTE ---
Patient states that MD told him he is nonweight bearing unless he is getting up to go to the bathroom, then he is partial weight bearing. Will monitor patient.
--- NOTE | 2024-03-23 14:20 | PTCARENOTE ---
Patient asking for a Oxycodone right at discharge. Told patient that I could give him pain medication but I would have to watch him for at least 15 minutes that I could not just discharge him. Patient said he does not want to wait and will take pain
meds on arrival to home. already went for car so patient discharged. Will monitor patient.
== END 2024-03-23 14:24 | disposition home or self-care (01) ==
LOC: SDS 06:05
PROVIDERS: Surgery; ATTENDING PHYSICIAN Student in an Organized Health Care Education/Training Program; FAMILY PHYSICIAN Family Medicine
DX: M20.5X1 Other deformities of toe(s) (acquired), right foot (principal); M20.41 Other hammer toe(s) (acquired), right foot; M20.21 Hallux rigidus, right foot; E11.8 Type 2 diabetes mellitus with unspecified complications; I10 Essential (primary) hypertension; K21.9 Gastro-esophageal reflux disease without esophagitis; M19.90 Unspecified osteoarthritis, unspecified site; E78.00 Pure hypercholesterolemia, unspecified; Z88.0 Allergy status to penicillin; Z88.2 Allergy status to sulfonamides; Z88.5 Allergy status to narcotic agent; Z79.85 Long-term (current) use of injectable non-insulin antidiabetic drugs; Z79.82 Long term (current) use of aspirin; Z79.84 Long term (current) use of oral hypoglycemic drugs; Z79.4 Long term (current) use of insulin; Z85.820 Personal history of malignant melanoma of skin; Z98.1 Arthrodesis status; Z90.49 Acquired absence of other specified parts of digestive tract; Z80.0 Family history of malignant neoplasm of digestive organs; Z82.49 Family history of ischemic heart disease and other diseases of the circulatory system; Z83.3 Family history of diabetes mellitus; Z80.3 Family history of malignant neoplasm of breast
CPT/HCPCS: 28750; 28285; 36415; 80048; 82962; 85027; 93005; C1713; C1776

== ENCOUNTER 2024-03-30 06:28 | Day surgery (SDC) | payer BC, SELFPAY ==
[2024-03-12 13:38] VITALS: BMI 25.2
[2024-03-30] VITALS (12 sets, daily range): BP systolic 99–139; BP diastolic 58–79; BMI 25.2
--- NOTE | 2024-03-30 06:52 | HP.FOC2 ---
Focused History & Physical
Chief Complaint
HPI:
Chief Complaint: Bilateral inguinal hernias
HPI / Indication for Planned Procedure: Patient is a 59-year-old male previously known to myself status post lap sondra for 2023. Fusion for an epidural abscess in 2014. Chronic pain management with Dilaudid and Nucynta.
He has had a few year history of inguinal hernias and has been following them expectantly. Over the past few months his right inguinal hernia has become more bothersome and occasionally painful. No symptoms suggestive of intermittent obstruction
or strangulation. Previous surgical history also notable for having undergone an anterior/posterior L4-5. Review[address] previous CT imaging fat-containing bilateral inguinal hernias, left indirect, right direct and indirect.
Relevant Past Medical History: Other (Diabetes mellitus, hypertension, GERD, DJD, right tibial fracture, hypercholesterolemia, hypertension, diabetes, osteoarthritis, melanoma)
Relevant Social History: Negative
Relevant Family History: Negative
Relevant Past Surgical History: Positive for (Cervical fusion, lumbar fusion, shoulder surgery, ankle surgery, esophageal dilation, lap sondra, wide excision melanoma)
Review of Systems
Review of Pertinent Systems: All Systems Negative
Medication
See Medication form for detailed medications: Yes
Medication List (including Herbals & OTC):
azelastine 137 mcg (0.1 %) nasal spray 2 spray intranasal DAILY 04/05/20
rabeprazole 20 mg tablet,delayed release (AcipHex) 20 mg PO BID 04/05/20
dicyclomine 20 mg tablet 20 mg PO TID PRN abdominal pain #10 tabs 04/03/22
ascorbic acid (vitamin C) 500 mg tablet (Vitamin C) 500 mg PO DAILY 05/22/23
bempedoic acid 180 mg-ezetimibe 10 mg tablet (Nexlizet) 1 tab PO DAILY 05/22/23
carisoprodol 350 mg tablet 350 - 700 mg PO HS 05/22/23
cholecalciferol (vitamin D3) 25 mcg (1,000 unit) tablet (Vitamin D3) 50 mcg PO HS 05/22/23
cyanocobalamin (vitamin B-12) 1,000 mcg tablet (Vitamin B-12) 1,000 mcg PO DAILY 05/22/23
ferrous sulfate 325 mg (65 mg iron) tablet 325 mg PO DAILY 05/22/23
fluticasone furoate 27.5 mcg/actuation nasal spray,suspension (Flonase Sensimist) 1 spray intranasal DAILY 05/22/23
metformin 1,000 mg tablet 1,000 mg PO BID 05/22/23
tapentadol 100 mg tablet,extended release,12 hr (Nucynta ER) 100 mg PO Q12H 05/22/23
tapentadol 75 mg tablet (Nucynta) 75 mg PO BID PRN breakthrough pain 05/22/23
tirzepatide 10 mg/0.5 mL subcutaneous pen injector (Mounjaro) 10 mg SC GUTIERREZ 05/22/23
lactulose 10 gram/15 mL oral solution 45 ml PO PRN PRN constipation from Dilaudid 05/23/23
sennosides 8.6 mg-docusate sodium 50 mg tablet (Senna with Docusate Sodium) 1 tab PO BID Constipation 05/23/23
evolocumab 140 mg/mL subcutaneous pen injector (Repatha SureClick) 140 mg SC Q2W 03/16/24
insulin glargine U-300 conc 300 unit/mL (3 mL) subcutaneous pen (Toujeo Max U-300 SoloStar) 4 unit SC HS 03/16/24
levocetirizine 5 mg tablet (Xyzal) 5 mg PO HS 03/16/24
lidocaine HCl 4 % topical patch 1 patch topical PRN PRN PAIN 03/16/24
hydromorphone 8 mg tablet (Dilaudid) 8 mg PO Q6H PRN pain 03/25/24
Medications Reviewed: Yes
Allergies and Reactions
Patient has Allergies: Yes
Noted Allergies and Reactions:
Allergy/AdvReac Type Severity Reaction Status Date / Time
morphine Allergy Nausea Verified 03/25/24 08:57
Penicillins Allergy Rash Verified 03/25/24 08:57
Sulfa (Sulfonamide Allergy Rash Verified 03/25/24 08:57
Antibiotics)
trazodone Allergy HYPERACTIVE Verified 03/25/24 08:57
Pertinent Physical Exam
All Other Systems: Negative
Head/Neck: Normal
Lungs: Normal
Heart: Normal
Abdomen: Other (Reducible bilateral inguinal hernias, right side larger than left. Lower midline incision scar to the right of midline.)
Extremities: Normal
Neurological: Normal
Diagnosis / Assessment
59-year-old male presenting for scheduled operative correction bilateral inguinal hernias
Plan / Procedure
Robotic assisted laparoscopic repair bilateral inguinal hernias with mesh
Anesthesia/Sedation to be done by Anesthesia Provider: Yes
[2024-03-30] MEDS: TYLENOL 1000 MG PO (07:06)
[2024-03-30 07:24] LABS: Glucose - Point of Care 118 mg/dl (70-99)
[2024-03-30] MEDS: NORMOSOL-R/PLASMALYTE-A 1000 IV (07:24)
--- NOTE | 2024-03-30 10:18 | W.IMMPOSTOP ---
Addendum entered and electronically signed by Damon Ramos MD 03/30/24 10:33:
#[id number]
Original Note:
Surgical Immed Post Op Note
-
Primary Surgeon: Damon Ramos MD
Assisting Surgeon: Rizwan Brown MD PGY1
Pre-op Diagnosis: Bilateral inguinal hernias
Post-op Diagnosis: Bilateral inguinal hernias; direct
Left lower quadrant adhesions from prior surgical incision
Procedure Performed: Robotic assisted laparoscopic repair of bilateral inguinal hernias with mesh; 3D max large mid weight
Robotic assisted laparoscopic lysis of adhesions (increasing operative time by 30 minutes over expected procedure)
Anesthesia Type: GETA +0.25% Marcaine with epi
Specimen / Cultures: None
Estimated Blood Loss: 8 mL
Complications: None immediate
Operative Findings: Bilateral direct inguinal hernias right side larger than left. No indirect component. No lipoma of either spermatic cord identified. Significant scarring underneath the left rectus from prior anterior approach for lumbar back
surgery significantly increasing adhesions to the rectus and oblique musculature all the way down to the inguinal space. This increased the typical operative time by at least 30 minutes over the expected procedure. 3D max large mid weight mesh x 2
secured to Alirio's ligament and either respective inguinal region with interrupted 2-0 Vicryl. Peritoneal flap closed with 2-0 Monocryl STRATAFIX spiral.
[2024-03-30 10:31] LABS: Glucose - Point of Care 156 mg/dl (70-99)
[2024-03-30] MEDS: DILAUDID 0.5 MG IV (10:54)
[2024-03-30] MEDS: DILAUDID 8 MG PO (11:47)
== END 2024-03-30 13:15 | disposition home or self-care (01) ==
LOC: SDS 06:28
PROVIDERS: ATTENDING PHYSICIAN Surgery; FAMILY PHYSICIAN Family Medicine
PROC: 0YUA4JZ Supplement Bilateral Inguinal Region with Synthetic Substitute, Percutaneous Endoscopic Approach (ICD-10-PCS; 2024-03-30)
DX: K40.20 Bilateral inguinal hernia, without obstruction or gangrene, not specified as recurrent (principal); G89.29 Other chronic pain; E11.9 Type 2 diabetes mellitus without complications; I10 Essential (primary) hypertension; E78.00 Pure hypercholesterolemia, unspecified; K21.9 Gastro-esophageal reflux disease without esophagitis; Z79.891 Long term (current) use of opiate analgesic; Z79.84 Long term (current) use of oral hypoglycemic drugs; Z88.5 Allergy status to narcotic agent; Z88.2 Allergy status to sulfonamides; Z88.0 Allergy status to penicillin; K66.0 Peritoneal adhesions (postprocedural) (postinfection)
CPT/HCPCS: 49650; 82962; C1781

== ENCOUNTER → 2024-04-04 10:43 | Outpatient (REF) | payer BC, SELFPAY ==
[2024-04-04 12:27] LABS: % Basophils 0.5 % (0-2); % Eosinophils 4.8 % (0-6); % Immature Granulocytes 0.4 % (0-0.5); % Lymphocytes 29.2 % (20.5-51.1); % Monocytes 8.1 % (1.7-9.3); Absolute Eosinophils 0.4 10^3/uL (0-0.7); Absolute Lymphocytes 2.1 10^3/uL (1.2-3.4); Absolute Monocytes 0.6 10^3/uL (0.1-0.6); Absolute Neutrophils 4.2 10^3/uL (1.4-6.5); Hematocrit 36.6 % (39.0-52.0); Hemoglobin 12.1 g/dL (13.0-18.0); Mean Corp Hgb Conc. 33.1 g/dL (33.0-37.0); Mean Corpuscular Hgb 29.7 pg (27.0-31.0); Mean Corpuscular Volume 89.9 fL (80.0-94.0); Mean Platelet Volume 10.9 fL (7.4-10.4); Nucleated Red Blood Cells % 0 % (-); Platelet Count 376 10^3/uL (130-400); Red Blood Cell Count 4.07 10^6/uL (4.70-6.10); Red Cell Dist. Width 12.7 % (11.5-14.5); White Blood Cell Count 7.3 10^3/uL (4.8-10.8)
[2024-04-04 13:32] LABS: ALT (SGPT) 25 U/L (0-50); AST (SGOT) 23 U/L (17-59); Albumin 4.9 g/dl (3.5-5.0); Alkaline Phosphatase 173 U/L (38-126); Blood Urea Nitrogen 27 mg/dl (9-20); Calcium 9.3 mg/dl (8.4-10.2); Carbon Dioxide 31 mmol/L (22-30); Chloride 100 mmol/L (98-107); Glucose 100 mg/dl (70-99); Sodium 139 mmol/L (135-145); Total Bilirubin 0.6 mg/dl (0.2-1.3); Total Protein 7.4 g/dl (6.3-8.2); eGFR > 60.00
== END ==
LOC: REG 10:43
PROVIDERS: ATTENDING PHYSICIAN Physician Assistant; FAMILY PHYSICIAN Family Medicine
DX: E11.65 Type 2 diabetes mellitus with hyperglycemia (principal)
CPT/HCPCS: 36415; 80053; 83036; 85025

== ENCOUNTER 2024-04-23 06:48 | Emergency (ER) | payer BC, SELFPAY ==
[2024-04-23 06:51] VITALS: BP 126/83
[2024-04-23 07:24] VITALS: BMI 25.1
[2024-04-23] MEDS: TORADOL 15 MG IV (07:35)
[2024-04-23 07:42] LABS: % Basophils 0.3 % (0-2); % Immature Granulocytes 1.8 % (0-0.5); % Lymphocytes 25.6 % (20.5-51.1); % Neutrophils 62.3 % (42.2-75.2); Absolute Eosinophils 0.1 10^3/uL (0-0.7); Absolute Immature Granulocytes 0.2 10^3/uL (0-0.05); Absolute Lymphocytes 2.5 10^3/uL (1.2-3.4); Absolute Monocytes 0.9 10^3/uL (0.1-0.6); Absolute Neutrophils 6.1 10^3/uL (1.4-6.5); Hematocrit 38.6 % (39.0-52.0); Hemoglobin 13.8 g/dL (13.0-18.0); Mean Corp Hgb Conc. 35.8 g/dL (33.0-37.0); Mean Corpuscular Hgb 30.8 pg (27.0-31.0); Mean Corpuscular Volume 86.2 fL (80.0-94.0); Mean Platelet Volume 10.9 fL (7.4-10.4); Nucleated Red Blood Cells % 0 % (-); Platelet Count 369 10^3/uL (130-400); Red Blood Cell Count 4.48 10^6/uL (4.70-6.10); Red Cell Dist. Width 12.7 % (11.5-14.5); White Blood Cell Count 9.9 10^3/uL (4.8-10.8)
[2024-04-23 07:46] LABS: ALT (SGPT) 78 U/L (0-50); AST (SGOT) 21 U/L (17-59); Albumin 4.6 g/dl (3.5-5.0); Alkaline Phosphatase 206 U/L (38-126); Blood Urea Nitrogen 22 mg/dl (9-20); Calcium 10.2 mg/dl (8.4-10.2); Carbon Dioxide 28 mmol/L (22-30); Chloride 98 mmol/L (98-107); Estimated Creatinine Clearance 111 ml/min; Glucose 294 mg/dl (70-99); Potassium 4.8 mmol/L (3.5-5.1); Sodium 137 mmol/L (135-145); Total Bilirubin 0.4 mg/dl (0.2-1.3); Total Protein 7.3 g/dl (6.3-8.2); eGFR > 60.00
--- NOTE | 2024-04-23 07:46 | ED.GENMED ---
History of Present Illness
General
Chief Complaint: Male Genito-Urinary Symptoms
Source: patient
Exam Limitations: none
Time Seen by Provider: 04/23/24 07:13
Nursing documentation reviewed up to this point in time: agreed with
History of Present Illness
History of Present Illness:
59 yo male w h/o of chronic back pain, neuropathies, numerous orthopedic surgeries, IDDM, GERD, HLD, bilateral inguinal hernia repairs Dr. Ramos 03/30/24 presents for being awakened 12:30 this a.m. with 9/10 cramping pain base of penis/suprapubic
area, both testicles, unrelieved with his usual Dilaudid 8 mg or Nucynta. States pain is constant, denies n/v/d/c. No trouble urinating. Denies fever.
Past History
Past History
ED Past Medical History: GERD and IDDM
ED Past Surgical History: Orthopedic
Social History
Tobacco: Non-smoker
Alcohol: Occasional
Drug: None
Personal:
Living: with family
Employment: Employed
Family History
Family History: Other
Review of Systems
Review of Systems
Allergies reviewed?: Yes
All Other Systems: ROS reviewed and negative except as documented in HPI and ROS
Constitutional: Denies fever or chills
Respiratory: Denies trouble breathing
Cardiac: Denies chest pain
ABD/GI: Reports abdominal pain (suprapubic); Denies nausea, vomiting, diarrhea, constipated or anorexia
: Denies dysuria, frequency, flank pain, difficulty voiding or urgency
Musculoskeletal: Reports other (chronic pain. Had neck injected 2 weeks ago w steroid, this made blood sugar go past 300 so put back on Insulin. )
Skin: Reports no symptoms
Neurological: Reports no symptoms
Phy Exam
Physical Exam
Physical Exam:
GENERAL: No acute distress. A&Ox3.
CONSTITUTIONAL: Afebrile.
EYES: clear, conjunctivae normal
ENMT: moist mucus membranes, Pharynx nl
RESPIRATORY: Regular respirations, nonlabored, lungs clear.
CARDIOVASCULAR: Regular rate and rhythm, no murmurs, no rubs.
GI: Soft, suprapubic tenderness, normal BS
: normal appearing, circumcised external genitalia, Bilateral testicular tenderness without swelling, redness or palpable mass
MUSCULOSKELETAL: Moves with ease. Well perfused.
SKIN: Warm, dry, pink, well healed bilateral surgical scars.
PSYCH: Normal mood and affect. Well kept, interactive and appropriate
NEUROLOGIC: Awake, alert and oriented. No focal neurological deficits
Course
Orders/Labs/Results
Orders:
Orders
04/23/24 07:24
CMP [Comprehensive Metabolic Panel] Urgent
Complete Blood Count/With Diff Urgent
Urinalysis Reflex To Culture Urgent
Date Specimen was Collected: 04/23/24
Time Specimen was Collected: 07:23
Urine Microscopic Reflex Cult Urgent
Urine Culture Urgent
GLORIA Source: U
Specimen Description:
Date Specimen was Collected: 04/23/24
Time Specimen was Collected: 07:23
04/23/24 07:30
Scrotum US [US Scrotum] Urgent
Comment:
Reason For Exam: pain base of penis
04/23/24 07:31
Ketorolac [Toradol] 15 mg .ROUTE .STK-MED ONE
04/23/24 07:35
Ketorolac [Toradol] 15 mg IV NOW STA
04/23/24 09:00
CT Abd/Pel (IV only)-DH only Urgent
Comment:
Reason For Exam: testicle/suprapubic pain
HYDROmorphone [Dilaudid] 1 mg IV NOW STA
04/23/24 09:02
Add On- LAB Urgent
Tests Added?: urine culture
Abnormal Lab Results
04/23/24
07:24
RBC 4.48 L 10^6/uL
(4.70-6.10)
Hct 38.6 L %
(39.0-52.0)
MPV 10.9 H fL
(7.4-10.4)
Abs Immat Gran (auto) 0.2 H 10^3/uL
(0-0.05)
Absolute Monos (auto) 0.9 H 10^3/uL
(0.1-0.6)
Immature Gran % 1.8 H %
(0-0.5)
BUN 22 H mg/dl
(9-20)
Glucose 294 H mg/dl
(70-99)
ALT 78 H U/L
(0-50)
Alkaline Phosphatase 206 H U/L
(38-126)
Urine Ketones 1+ A
(Negative)
Leukocyte Esterase Rfl 1+ A
(Negative)
Urine Bacteria (Reflex) Few A
(Negative)
Urine Glucose 2+ A
(Negative)
Urine Albumin (Reflex) 2+ A
(Neg - Trace)
04/23/24 07:24
04/23/24 07:24
Vital Signs
Initial and Last Documented VS:
Initial Vital Signs
Temp Pulse Resp BP Pulse Ox
98.3 F 86 18 126/83 99
04/23/24 06:51 04/23/24 06:51 04/23/24 06:51 04/23/24 06:51 04/23/24 06:51
Last Documented Vital Signs
Temp Pulse Resp BP Pulse Ox
98.3 F 71 16 117/79 95
04/23/24 06:51 04/23/24 11:25 04/23/24 11:25 04/23/24 11:25 04/23/24 11:25
MDM/Problems Addressed
Differential Diagnosis Includes:
Testicular torsion, adhesions, UTI
MDM/Problems Addressed:
59 yo male w h/o of chronic back pain, neuropathies, numerous orthopedic surgeries, IDDM, GERD, HLD, bilateral inguinal hernia repairs Dr. Ramos 03/30/24 presents for being awakened 12:30 this a.m. with 9/10 cramping pain base of penis/suprapubic
area, both testicles, unrelieved with his usual Dilaudid 8 mg or Nucynta. States pain is constant, denies n/v/d/c. No trouble urinating. Denies fever.
Had neck injected 2 weeks ago w steroid, this made blood sugar go past 300 so put back on Insulin. PCP DC'd his insulin 2 weeks ago d/t well controlled
Afebrile, NAD
8:10 a.m.
CBC with no clinically significant abnormality
CMP: Mild elevation glucose, alk phos and ALT most likely stress related otherwise unremarkable
U/A: 6-10 WBC, +1 leukocytes, neg nitrites, + Casts, urine culture ordered
US bilateral testicles: Radiology report read: IMPRESSION:
1. No specific findings to explain pain. No acute abnormality identified.
2. Mildly striated testicular echotexture bilaterally, in a patient of this age most likely related to mild interstitial fibrosis.
3. Small bilateral varicoceles.
No relief with Toradol, Dilaudid ordered
Case discussed with Dr. Pedraza
Will move on to CT abd/pelvis with IV contrast
12:00 PM:
CT abdomen pelvis with IV contrast radiology report read: IMPRESSION:
1. No specific findings to explain pain. No acute intra-abdominal process identified.
2. Post bilateral inguinal herniorrhaphy. As above, there is some residual fat attenuation tissue within the inguinal canals bilaterally, no definitive recurrent hernia is identified at CT.
3. Right-sided varicocele.
4. Hepatomegaly.
5. Post cholecystectomy.
6. Material with the appearance of stool within the distal small bowel, compatible with some degree of slow transit.
Copy of CAT scan given to patient, findings discussed, nothing to explain his symptoms.
He will call Dr. Ramos to discuss findings.
Pt ambulated out with normal gait at discharge
*Critical Care Note
Total Time (30-74mins, 75-104mins- exclusive of procedures): Not Applicable
ED Attending Note
-
Portions of this chart may have been created with voice recognition software.� Occasional wrong word or��sound alike� substitutions may have occurred due to the inherent limitations of voice recognition software.
Discharge Plan
Departure
Patient Disposition: Home (Routine Discharge)
Date of Disposition: 04/23/24
Time of Disposition: 12:03
Patient with high blood pressure during this ER visit?: No
Condition: Fair
Discharge Problem:
Abdominal pain, suprapubic
Instructions: Abdominal pain in adults - Discharge instructions
Prescriptions:
No Action
rabeprazole [AcipHex] 20 MG tablet,delayed release (DR/EC)
20 mg PO BID
azelastine 1 SPRAY aerosol,spray
2 spray intranasal DAILY
Patient Comments:
each nostril
cyanocobalamin (vitamin B-12) [Vitamin B-12] 1,000 mcg Tablet
1,000 mcg PO DAILY
ascorbic acid (vitamin C) [Vitamin C] 500 mg Tablet
500 mg PO DAILY
ferrous sulfate 325 mg (65 mg iron) Tablet
135 mg PO DAILY
metformin 1,000 mg Tablet
1,000 mg PO BID
cholecalciferol (vitamin D3) [Vitamin D3] 25 mcg (1,000 unit) Tablet
50 mcg PO HS
Flonase Sensimist 27.5 mcg/actuation Enigma,Suspension
1 spray INTRANASAL DAILY
Nucynta ER 100 mg tablet extended release 12 hr
100 mg PO Q12H
Patient Comments:
05/22/2023: last filled 05/06/23, 60 tabs for 30 days from [id number]
Mounjaro 10 mg/0.5 mL pen injector
10 mg SC GUTIERREZ
sennosides-docusate sodium [Senna with Docusate Sodium] 8.6-50 mg Tablet
1 tab PO BID
lactulose 10 gram/15 mL Solution
15 ml PO TID
hydromorphone [Dilaudid] 8 mg Tablet
8 mg PO Q6H PRN (Reason: pain)
levocetirizine [Xyzal] 5 mg Tablet
5 mg PO HS
Repatha SureClick 140 mg/mL Pen Injector
140 mg SC Q2W
insulin glargine U-300 conc [Toujeo Max U-300 SoloStar] 300 unit/mL (3 mL) Insulin Pen
4 unit SC .DINNER
dicyclomine 20 mg tablet
20 mg PO BID
Referrals:
Jorge Alberto Patel, DO [Family Provider] - Call in 1-3 days for appt
Activity Restrictions/Additional Instructions:
As we discussed, nothing worrisome in your workup here today.
I sent a urine culture to see if you have an infection but the results will be back for 2 or 3 days. If it comes back positive we will contact you.
See your doctor in 3-5 days if you are still having the pain
Continue your Insulin as ordered, you blood sugar was 294
Interventions
Interventions:
*Risk Screen - Suicide Last Done: 04/23/24 06:51
*General Assessment Last Done: 04/23/24 07:29
*Neglect/Abuse Screening Last Done: 04/23/24 07:06
*ED- Fall Risk Assessment Last Done: 04/23/24 07:28
*ED COVID-19 Vaccine History Last Done: 04/23/24 07:26
*Nursing Disposition Last Done: 04/23/24 12:30
ED-Male Genitourinary Assessment Last Done: 04/23/24 07:26
Discharge Date and Time
Discharge Date/Time: 04/23/24 12:30
Print Language: VIETNAMESE
[2024-04-23 07:48] LABS: Urine Albumin 2+ (Neg - Trace); Urine Bilirubin Negative (Negative); Urine Character Clear (Clear); Urine Color Yellow; Urine Glucose 2+ (Negative); Urine Ketone 1+ (Negative); Urine Leukocyte 1+ (Negative); Urine Nitrite Negative (Negative); Urine Occult Blood Negative (Negative); Urine Specific Gravity 1.025 (<1.030); Urine Urobilinogen 1+ (Neg - 1+)
[2024-04-23 08:28] LABS: Urine Mucus Moderate
[2024-04-23 08:29] LABS: Urine Hyaline Cast >15 /LPF (0-2); Urine Red Blood Cell 0-2 /HPF (0-2); Urine Squamous Cell 0-2 /LPF (Few)
[2024-04-23 08:30] LABS: Urine Amorphous Seen; Urine Bacteria Few (Negative)
[2024-04-23 08:36] VITALS: BP 125/78
[2024-04-23 09:00] VITALS: BP 108/81
[2024-04-23] MEDS: DILAUDID 1 MG IV (09:07)
[2024-04-23 10:00] VITALS: BP 111/78
[2024-04-23 11:25] VITALS: BP 117/79
== END 2024-04-23 12:30 | disposition home or self-care (01) ==
LOC: EMR 06:48
PROVIDERS: Registered Nurse; EMERGENCY PHYSICIAN Student in an Organized Health Care Education/Training Program; FAMILY PHYSICIAN Family Medicine
DX: R10.2 Pelvic and perineal pain (principal); I86.1 Scrotal varices; E11.9 Type 2 diabetes mellitus without complications; K21.9 Gastro-esophageal reflux disease without esophagitis; E78.5 Hyperlipidemia, unspecified; Z79.4 Long term (current) use of insulin; Z98.890 Other specified postprocedural states; Z90.49 Acquired absence of other specified parts of digestive tract
CPT/HCPCS: 99284; 96374; 96375; 74177; 76870; 80053; 81003; 81015; 85025; 87086; 93976; Q9967

== ENCOUNTER → 2024-06-06 10:40 | Outpatient (REF) | payer BC, SELFPAY ==
[2024-06-06 12:03] LABS: % Basophils 0.6 % (0-2); % Eosinophils 2.2 % (0-6); % Immature Granulocytes 0.3 % (0-0.5); % Lymphocytes 34.3 % (20.5-51.1); % Monocytes 8.5 % (1.7-9.3); % Neutrophils 54.1 % (42.2-75.2); Absolute Eosinophils 0.1 10^3/uL (0-0.7); Absolute Lymphocytes 2.1 10^3/uL (1.2-3.4); Absolute Monocytes 0.5 10^3/uL (0.1-0.6); Absolute Neutrophils 3.4 10^3/uL (1.4-6.5); Hematocrit 34.6 % (39.0-52.0); Hemoglobin 11.7 g/dL (13.0-18.0); Mean Corp Hgb Conc. 33.8 g/dL (33.0-37.0); Mean Corpuscular Hgb 29.7 pg (27.0-31.0); Mean Corpuscular Volume 87.8 fL (80.0-94.0); Mean Platelet Volume 10.7 fL (7.4-10.4); Nucleated Red Blood Cells % 0 % (-); Platelet Count 330 10^3/uL (130-400); Red Blood Cell Count 3.94 10^6/uL (4.70-6.10); Red Cell Dist. Width 12.7 % (11.5-14.5); White Blood Cell Count 6.2 10^3/uL (4.8-10.8)
[2024-06-06 12:24] LABS: Iron 76 ug/dl (49-181)
[2024-06-06 12:33] LABS: Percent Saturation 19 % (20-50); Total Iron Binding Capacity 398 ug/dl (261-462)
[2024-06-06 12:58] LABS: Ferritin 42.6 ng/ml (17.9-464.0)
== END ==
LOC: REG 10:40
PROVIDERS: ATTENDING PHYSICIAN Specialist; FAMILY PHYSICIAN Family Medicine
DX: D50.9 Iron deficiency anemia, unspecified (principal)
CPT/HCPCS: 36415; 82728; 83540; 83550; 85025

== ENCOUNTER → 2024-06-18 11:50 | Outpatient (REF) | payer BC, SELFPAY ==
[2024-06-18 13:34] LABS: Urine Albumin 1+ (Neg - Trace); Urine Bilirubin Negative (Negative); Urine Character Clear (Clear); Urine Color Yellow; Urine Glucose Negative (Negative); Urine Ketone Negative (Negative); Urine Leukocyte Negative (Negative); Urine Nitrite Negative (Negative); Urine Occult Blood Negative (Negative); Urine Urobilinogen Negative (Neg - 1+)
[2024-06-18 14:34] LABS: Urine Mucus Many; Urine Squamous Cell 0-2 /LPF (Few)
[2024-06-18 14:38] LABS: Urine Amorphous Seen; Urine Hyaline Cast >15 /LPF (0-2)
[2024-06-18 14:43] LABS: Urine Trichomonas Few; Urine White Cell 0-2 /HPF (0-5)
== END ==
LOC: REG 11:50
PROVIDERS: ATTENDING PHYSICIAN Nurse Practitioner Primary Care; FAMILY PHYSICIAN Family Medicine
DX: N39.0 Urinary tract infection, site not specified (principal)
CPT/HCPCS: 81003; 81015

== ENCOUNTER → 2024-07-04 10:35 | Outpatient (REF) | payer OTHER, BC, SELFPAY | LOC: RAD 10:35 | PROVIDERS: ATTENDING PHYSICIAN Specialist; FAMILY PHYSICIAN Family Medicine | DX: M46.1 Sacroiliitis, not elsewhere classified (principal) | CPT/HCPCS: 73523 ==

== ENCOUNTER → 2024-07-04 10:40 | Outpatient (REF) | payer BC, SELFPAY ==
[2024-07-04 11:32] LABS: % Basophils 0.7 % (0-2); % Eosinophils 3.8 % (0-6); % Immature Granulocytes 0.4 % (0-0.5); % Lymphocytes 34.1 % (20.5-51.1); % Monocytes 8.1 % (1.7-9.3); % Neutrophils 52.9 % (42.2-75.2); Absolute Eosinophils 0.2 10^3/uL (0-0.7); Absolute Lymphocytes 1.9 10^3/uL (1.2-3.4); Absolute Monocytes 0.5 10^3/uL (0.1-0.6); Hematocrit 34.1 % (39.0-52.0); Hemoglobin 11.3 g/dL (13.0-18.0); Mean Corp Hgb Conc. 33.1 g/dL (33.0-37.0); Mean Corpuscular Hgb 30.3 pg (27.0-31.0); Mean Corpuscular Volume 91.4 fL (80.0-94.0); Mean Platelet Volume 10.4 fL (7.4-10.4); Nucleated Red Blood Cells % 0 % (-); Platelet Count 273 10^3/uL (130-400); Red Blood Cell Count 3.73 10^6/uL (4.70-6.10); Red Cell Dist. Width 13.2 % (11.5-14.5); White Blood Cell Count 5.6 10^3/uL (4.8-10.8)
[2024-07-04 11:55] LABS: ALT (SGPT) 84 U/L (0-50); AST (SGOT) 25 U/L (17-59); Albumin 4.2 g/dl (3.5-5.0); Alkaline Phosphatase 120 U/L (38-126); Blood Urea Nitrogen 17 mg/dl (9-20); Calcium 9.4 mg/dl (8.4-10.2); Carbon Dioxide 26 mmol/L (22-30); Chloride 108 mmol/L (98-107); Glucose 92 mg/dl (70-99); HDL Cholesterol 41 mg/dl; LDL Cholesterol, Calculated 28 mg/dl; Potassium 4.2 mmol/L (3.5-5.1); Sodium 139 mmol/L (135-145); Total Bilirubin 0.4 mg/dl (0.2-1.3); Total Cholesterol 115 mg/dl (50-199); Total Protein 6.5 g/dl (6.3-8.2); Triglyceride 231 mg/dl (10-149); Very Low Density Lipoprotein 46 mg/dl (0-30); eGFR > 60.00
[2024-07-04 12:00] LABS: Urine Albumin Negative (Neg - Trace); Urine Bilirubin Negative (Negative); Urine Character Clear (Clear); Urine Color Yellow; Urine Glucose Negative (Negative); Urine Ketone Negative (Negative); Urine Leukocyte Negative (Negative); Urine Nitrite Negative (Negative); Urine Occult Blood Negative (Negative); Urine Specific Gravity 1.015 (<1.030); Urine Urobilinogen Negative (Neg - 1+)
[2024-07-04 12:21] LABS: TSH Reflex To Free T4 0.57 uIU/ml (0.47-4.68)
[2024-07-04 13:08] LABS: Glycohemoglobin (HgbA1c) 6.1 % (4.0-5.6)
== END ==
LOC: REG 10:40
PROVIDERS: ATTENDING PHYSICIAN Physician Assistant; FAMILY PHYSICIAN Family Medicine
DX: E11.65 Type 2 diabetes mellitus with hyperglycemia (principal); I10 Essential (primary) hypertension; E78.49 Other hyperlipidemia
CPT/HCPCS: 80053; 80061; 81003; 83036; 84443; 85025

== ENCOUNTER 2024-07-14 06:17 | Day surgery (SDC) | payer BC, SELFPAY ==
[2024-07-14 08:55] LABS: Glucose - Point of Care 98 mg/dl (70-99)
== END 2024-07-14 10:57 | disposition home or self-care (01) ==
LOC: GI 06:17
PROVIDERS: ATTENDING PHYSICIAN Specialist
DX: R13.10 Dysphagia, unspecified (principal); K31.7 Polyp of stomach and duodenum; K22.2 Esophageal obstruction
CPT/HCPCS: 43249; 43239; 88305; 82962

== ENCOUNTER → 2024-07-30 12:16 | Outpatient (REF) | payer BC, SELFPAY ==
[2024-07-30 13:55] LABS: Urine Albumin 1+ (Neg - Trace); Urine Bilirubin Negative (Negative); Urine Character Clear (Clear); Urine Color Yellow; Urine Glucose Negative (Negative); Urine Ketone Negative (Negative); Urine Leukocyte Negative (Negative); Urine Nitrite Negative (Negative); Urine Occult Blood Negative (Negative); Urine Urobilinogen Negative (Neg - 1+)
[2024-07-30 14:39] LABS: Urine Mucus Many
[2024-07-30 14:40] LABS: Urine Amorphous Seen; Urine Urothelial Cell 0-2 /LPF (FEW)
[2024-07-30 14:43] LABS: Urine Granular Cast 0-2 /LPF (0); Urine Hyaline Cast 0-2 /LPF (0-2); Urine Red Blood Cell 0-2 /HPF (0-2); Urine White Cell 0-2 /HPF (0-5)
== END ==
LOC: REG 12:16
PROVIDERS: ATTENDING PHYSICIAN Family Medicine
DX: R82.90 Unspecified abnormal findings in urine (principal)
CPT/HCPCS: 81003; 81015; 87086

== ENCOUNTER → 2024-09-12 11:08 | Outpatient (REF) | payer BC, SELFPAY ==
[2024-09-12 12:34] LABS: Urine Character Clear (Clear)
[2024-09-12 13:07] LABS: Urine Red Blood Cell 0-2 /HPF (0-2); Urine Squamous Cell 0-2 /LPF (Few); Urine White Cell 0-2 /HPF (0-5)
== END ==
LOC: REG 11:08
PROVIDERS: ATTENDING PHYSICIAN Family Medicine; FAMILY PHYSICIAN Family Medicine
DX: N39.0 Urinary tract infection, site not specified (principal)
CPT/HCPCS: 81003; 81015

== ENCOUNTER → 2024-09-18 07:51 | Outpatient (REF) | payer BC, SELFPAY ==
[2024-09-18 08:58] LABS: Hematocrit 35.5 % (39.0-52.0); Hemoglobin 11.6 g/dL (13.0-18.0); Mean Corp Hgb Conc. 32.7 g/dL (33.0-37.0); Mean Corpuscular Volume 92.0 fL (80.0-94.0); Nucleated Red Blood Cells % 0 % (-); Platelet Count 249 10^3/uL (130-400); Red Cell Dist. Width 12.6 % (11.5-14.5)
[2024-09-18 09:28] LABS: Iron 56 ug/dl (49-181)
[2024-09-18 09:40] LABS: Total Iron Binding Capacity 381 ug/dl (261-462)
[2024-09-18 12:12] LABS: Ferritin 18.2 ng/ml (17.9-464.0)
== END ==
LOC: REG 07:51
PROVIDERS: ATTENDING PHYSICIAN Specialist; FAMILY PHYSICIAN Family Medicine
DX: D50.8 Other iron deficiency anemias (principal)
CPT/HCPCS: 36415; 82728; 83540; 83550; 85025

== ENCOUNTER → 2024-09-18 12:08 | Outpatient (REF) | payer OTHER, SELFPAY ==
[2024-09-18 15:13] LABS: Vitamin D, 25-OH*** 55.6 ng/mL (30-80)
[2024-09-18 15:37] LABS: C-Reactive Protein < 5.00 mg/L (0.0-10.00)
[2024-09-20 00:57] LABS: HLA-B27 Negative (Negative)
== END ==
LOC: REG 12:08
PROVIDERS: ATTENDING PHYSICIAN Family Medicine Adult Medicine; FAMILY PHYSICIAN Family Medicine
DX: E55.9 Vitamin D deficiency, unspecified (principal); M25.50 Pain in unspecified joint
CPT/HCPCS: 36415; 82306; 84155; 84165; 85652; 86038; 86140; 86200; 86430; 86812

== ENCOUNTER → 2024-12-18 09:20 | Outpatient (REF) | payer BC, SELFPAY ==
[2024-12-18 10:40] LABS: Hematocrit 34.4 % (39.0-52.0); Hemoglobin 11.5 g/dL (13.0-18.0); Mean Corp Hgb Conc. 33.4 g/dL (33.0-37.0); Mean Corpuscular Volume 91.0 fL (80.0-94.0); Nucleated Red Blood Cells % 0 % (-); Platelet Count 284 10^3/uL (130-400); Red Cell Dist. Width 13.0 % (11.5-14.5)
[2024-12-18 11:04] LABS: Glycohemoglobin (HgbA1c) 5.9 % (4.0-5.9)
[2024-12-18 11:05] LABS: Microalb - Urine Creatinine 98.500 mg/dl
[2024-12-18 11:08] LABS: Microalbumin, Random Urine 0.9 mg/dl (0.6-1.7)
[2024-12-18 11:17] LABS: ALT (SGPT) 17 U/L (0-50); AST (SGOT) 17 U/L (17-59); Albumin 4.7 g/dl (3.5-5.0); Alkaline Phosphatase 98 U/L (38-126); Blood Urea Nitrogen 21 mg/dl (9-20); Calcium 9.5 mg/dl (8.4-10.2); Carbon Dioxide 26 mmol/L (22-30); Chloride 103 mmol/L (98-107); Glucose 96 mg/dl (70-99); HDL Cholesterol 49 mg/dl; Iron 129 ug/dl (49-181); LDH 112 U/L (120-246); LDL Cholesterol, Calculated 40 mg/dl; Potassium 4.1 mmol/L (3.5-5.1); Sodium 134 mmol/L (135-145); Total Protein 7.4 g/dl (6.3-8.2); Very Low Density Lipoprotein 25 mg/dl (0-30); eGFR > 60.00
[2024-12-18 11:27] LABS: Total Iron Binding Capacity 503 ug/dl (261-462)
[2024-12-18 12:22] LABS: Ferritin 17.3 ng/ml (17.9-464.0)
[2024-12-18 12:53] LABS: Folate 15.6 ng/ml (2.76-20)
[2024-12-18 15:16] LABS: Vitamin B12 416 pg/ml (239-931)
[2024-12-20 21:09] LABS: Gastric Parietal Cell Ab, IgG 10.6 Units (0.0-24.9)
[2024-12-20 21:39] LABS: Intrinsic Factor Blocking Ab Negative (Negative)
== END ==
LOC: RAD 09:20
PROVIDERS: ATTENDING PHYSICIAN Physician Assistant; FAMILY PHYSICIAN Family Medicine; OTHER PHYSICIAN Dermatology; OTHER PHYSICIAN Internal Medicine; OTHER PHYSICIAN Internal Medicine Hematology & Oncology; REFERRING PHYSICIAN Specialist
DX: D50.9 Iron deficiency anemia, unspecified (principal); D51.3 Other dietary vitamin B12 deficiency anemia; E11.65 Type 2 diabetes mellitus with hyperglycemia; Z85.820 Personal history of malignant melanoma of skin; E78.00 Pure hypercholesterolemia, unspecified; I10 Essential (primary) hypertension
CPT/HCPCS: 36415; 71046; 80053; 80061; 82043; 82570; 82607; 82728; 82746; 83036; 83516; 83540; 83550; 83615; 83921; 84156; 85025; 86340

== ENCOUNTER → 2024-12-21 09:05 | Outpatient (REF) | payer BC, SELFPAY ==
[2024-12-21 15:51] LABS: Urine Character Clear (Clear)
[2024-12-23 13:03] LABS: tTG IgA Antibody 3.3 EU/ml (0-19); tTG IgG Antibody 7.2 EU/ml (0-19)
== END ==
LOC: REG 09:05
PROVIDERS: ATTENDING PHYSICIAN Specialist; FAMILY PHYSICIAN Family Medicine
DX: D50.9 Iron deficiency anemia, unspecified (principal); R39.89 Other symptoms and signs involving the genitourinary system
CPT/HCPCS: 36415; 81003; 82784; 83516; 86231; 87086

== ENCOUNTER → 2025-02-08 08:25 | Outpatient (REF) | payer BC, SELFPAY ==
[2025-02-08 09:06] LABS: Hematocrit 35.8 % (39.0-52.0); Hemoglobin 11.6 g/dL (13.0-18.0); Mean Corp Hgb Conc. 32.4 g/dL (33.0-37.0); Mean Corpuscular Volume 94.2 fL (80.0-94.0); Nucleated Red Blood Cells % 0 % (-); Platelet Count 270 10^3/uL (130-400); Red Cell Dist. Width 13.2 % (11.5-14.5)
[2025-02-08 09:49] LABS: Iron 99 ug/dl (49-181)
[2025-02-08 10:01] LABS: Total Iron Binding Capacity 515 ug/dl (261-462)
[2025-02-08 10:24] LABS: Ferritin 11.8 ng/ml (17.9-464.0)
[2025-02-08 10:55] LABS: Folate > 20.0 ng/ml (2.76-20); Vitamin B12 323 pg/ml (239-931)
== END ==
LOC: REG 08:25
PROVIDERS: ATTENDING PHYSICIAN Internal Medicine Hematology & Oncology; FAMILY PHYSICIAN Family Medicine; OTHER PHYSICIAN Specialist
DX: D50.9 Iron deficiency anemia, unspecified (principal); D51.3 Other dietary vitamin B12 deficiency anemia
CPT/HCPCS: 36415; 82607; 82728; 82746; 83540; 83550; 85025